=== PATIENT | male | born 1950 | race Caucasian/White ===

== ENCOUNTER → 2020-06-16 14:59 | Outpatient (BNVA) | payer MEDICARE, SELFPAY | PROVIDERS: PCP Nurse Practitioner Family; Visit Provider Nurse Practitioner Family | DX: Z20.828 Contact with and (suspected) exposure to other viral communicable diseases (principal); R05 Cough; J01.40 Acute pansinusitis, unspecified | CPT/HCPCS: 87635 ==

== ENCOUNTER 2020-06-24 11:42 | Inpatient (IN) | payer MEDICARE, SELFPAY ==
[2020-06-24] VITALS (51 sets, daily range): BP systolic 129–195; BP diastolic 81–129; PULSE 60–84; RESP 2–34; TEMP 36.7–37.1; O2SAT 85–92; BMI 28.3
--- NOTE | 2020-06-24 11:54 | XR_ITS ---
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 There is some def ormity of the upper trachea. There is elevation of both hemidiaphragms. Poor inspiration. There is a reticular nodular pattern in both lungs most notably the right upper lung and the left bill gular segment. These findings are more likely chronic in nature. There is no previous exam for compar jami. No other significant abnormalities identified. XR/XR chest 1V portable 19761 IMPRESSION: The portable technique and the lack of optimal inspiration may add to the impre ssion of a widened mediastinum however aortic or great vessel aneurysmal dilata tion or mediastinal mass would be considered. When feasible and upright PA and lateral chest should be obtained and if still suspicious CT scan of the chest w ith contrast should be definitive. The lung findings that are seen do not appear to indicate acute pulmonary patho logy.
--- NOTE | 2020-06-24 11:55 | ECG_ITS ---
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 Measurements Intervals [place] Rate: 65 P: 18 OH: 141 QRS: 50 QRSD: 97 T: 44 QT: 404 QTc: 422 Interpretive Statements SINUS RHYTHM No previous ECG available for comparison Electronically Signed On 06-24-2020 20:55:14 CDT by Lincoln Anguiano M.D. [id number] f
[2020-06-24 12:53] LABS: INR 1.04 (0.8-1.2)
[2020-06-24 12:55] LABS: Fibrinogen 920 mg/dL (174-498)
[2020-06-24] MEDS: dexamethasone 4 mg/mL INJ 6 MG IVP (12:58)
[2020-06-24] MEDS: enoxaparin 80 mg/0.8 mL Syringe SUBCUT (12:58)
[2020-06-24 13:00] LABS: D Dimer 1.91 ug/mIFEU (0-0.59)
[2020-06-24 13:01] LABS: Lactic Sepsis W/Reflex 2.4 mmol/L (0.5-2.2)
[2020-06-24 13:03] LABS: Troponin(5th) Baseline 8 ng/L (0-15)
[2020-06-24 13:10] LABS: NT Pro B Type Natriuretic Pept 493 pg/mL (0-125); Procalcitonin 0.09 ng/mL (0-0.5)
[2020-06-24 13:22] LABS: Alanine Aminotransferase 21 U/L (0-41); Albumin Level 3.1 g/dL (3.5-5.2); Alkaline Phosphatase 66 IU/L (40-130); Anion Gap 16.5 (5-19); Aspartate Amino Transferase 30 U/L (0-40); Blood Urea Nitrogen 23 mg/dL (8-23); C Reactive Protein 106.1 mg/L (0.0-4.9); Calcium 8.7 mg/dL (8.5-10.5); Carbon Dioxide 20 mmol/L (22-29); Chloride 98 mmol/L (98-107); Ferritin 494 ng/mL (30-400); Globulin 4.1 g/dL (1.3-4.6); Glomerular Filtration Rate 66.4 mL/min (90-130); Glucose 168 mg/dL (65-115); Magnesium 2.4 mg/dL (1.7-2.3); Osmolality Calculated 278 mOsm/kg (285-295); Potassium 4.5 mmol/L (3.5-5.1); Sodium 130 mmol/L (136-145); Total Bilirubin 0.4 mg/dL (0.15-1.2); Total Protein 7.2 g/dL (6.6-8.7)
[2020-06-24 13:45] LABS: Influenza A by IFA Negative (Negative); Influenza B by IFA Negative (Negative)
[2020-06-24 13:48] LABS: Basophils % 0.1 %; Hematocrit 46.5 % (42.0-52.0); Lymphocytes # 0.5 10^3/uL (0.8-4.8); Lymphocytes % 4.2 %; Mean Corpuscular HGB Conc 32.3 g/dL (30.0-36.0); Mean Corpuscular Hemoglobin 26.5 pg (28.0-34.0); Mean Corpuscular Volume 82.2 fL (80-94); Monocytes # 0.7 10^3/uL (0.2-0.9); Monocytes % 6.5 %; Neutrophils # 9.76 10^3/uL (1.8-7.7); Neutrophils % 88.7 %; Nucleated Red Blood Cells % 0 %; Platelet Count 346 10^3/cmm (130-400); Red Blood Count 5.66 10^6/uL (4.1-5.3); Red Cell Distribution Width 18.1 % (12.1-15.1)
--- NOTE | 2020-06-24 13:55 | ECG_ITS ---
[facility] Test Date: 2020-06-24 Pat Name: Rafa Lucas Department: Room: Gender: Male Care Team Assistant: : 1950 Requested By: Marybel Garcia Order Number: [id number] Johanna MD: Lincoln Anguiano M.D. Measurements Intervals [place] Rate: 63 P: 5 HI: 147 QRS: 42 QRSD: 94 T: 45 QT: 427 QTc: 439 Interpretive Statements SINUS RHYTHM Compared to ECG 06/24/2020 12:15:16 No significant changes Electronically Signed On 06-25-2020 21:37:32 CDT by Lincoln Anguiano M.D. [id number]
[2020-06-24 14:14] LABS: Reflex Lactate Order REFLEX LACTIC ORDERD
--- NOTE | 2020-06-24 14:21 | ED_ITS ---
HPI - General Adult General: Chief complaint: General Medical Stated complaint: SOB, COVID + 2 WKS AGO Time Seen by Provider: 06/24/20 11:45 History of Present Illness: HPI narrative: This patient is a 69-year-old male who comes in today with COVID. He had a positive test about 10 days ago. He was symptomatic for a few days before that and per family he is on day 12 of illness. His granddaughter is an ICU nurse here. He said he has been running fevers the whole time he has been sick. The most recent was 101 this morning. He has a pulse ox at home and his pulse ox was in the 60s this morning. He said it is been doing that at times but he has not told anyone about it. He saw his primary care and was put on Zithromax, Levaquin, prednisone and given a shot of dexamethasone. He said he felt better after that but really has never been back to normal. He denies any other history such as diabetes or COPD. He does have hypertension and BPH. He does state he has been having problems with congestion for about the last year but thinks it is related to allergies. Onset (ago): day(s) (12) Associated symptoms: Reports dyspnea, malaise and nausea; Deny chest pain, headache(s), rash or vomiting Review of Systems General: Reports: 10 or more systems reviewed and unremarkable except in HPI and below Const: Reports: fever(s), chills, fatigue and malaise Eyes: Denies: change in vision ENMT: Denies: odynophagia Card: Denies: chest pain or swelling of feet/ankles Resp: Reports: dyspnea and non-productive cough; Denies: productive cough GI: Reports: nausea; Denies: abdominal pain or vomiting : Denies: flank pain Musc: Denies: neck pain or back pain Skin/Breast: Denies: rash Neuro: Denies: headache(s), numbness in extremities or weakness in extremities Babar/Lymph: Denies: easy bruising or easy bleeding All/Imm: Reports: seasonal rhinorrhea PFS ED PFSH: Medical History BPH (benign prostatic hyperplasia) Cough HTN (hypertension) Lower respiratory infection Sinusitis Surgical History Hx of appendectomy Family History Other Hypertension Social History (Updated 06/24/20 @ 20:08 by Rosalba Brunson MD) Smoking and tobacco status: never smoked Alcohol intake: current Alcohol intake frequency: holidays/special occasions only Substance/Drug Use: never Household members: spouse Marital status: Current occupational status: retired Physical Exam Const: COMMON NORMALS: no acute distress, patient oriented x3, no limitations and alert GENERAL APPEARANCE: cooperative and comfortable HENMT: HEAD & SCALP: normal to inspection FACE & SINUS: normal facial exam Eye: GENERAL EYE: appearance normal, both eyes and all related structures Neck/C-Spine: COMMON NORMALS: supple, no meningeal signs and no JVD Chest: COMMONS NORMALS: normal inspection of the chest Resp: COMMON NORMALS: normal respiratory effort, No use of accessory muscles and clear to auscultation bilaterally AUSCULTATION: clear to auscultation bilaterally Cardio: COMMON NORMALS: no JVD, regular rate, regular rhythm and No murmurs present (Cardio) RATE: regular rate RHYTHM: regular rhythm GI: COMMON NORMALS: Normal to inspection, nondistended, normoactive bowel sounds present, Soft to palpation and non-tender INSPECTION: Yes normal to inspection AUSCULTATION: Yes normoactive bowel sounds PALPATION: Yes Soft to palpation Back/Pelvis: COMMON NORMALS: thoracic and lumbar spine normal to inspection Extremity: COMMON NORMALS: normal to inspection Neuro: COMMON NORMALS: patient oriented x3, moves all extremities, no focal motor deficits and no sensory deficits noted SENSORIUM/ORIENTATION: Yes alert MENINGEAL SIGNS: Yes no meningeal signs Psych: COMMON NORMALS: mental status grossly normal, cooperative and normal affect Skin: COMMON NORMALS: no rashes or lesions noted and turgor normal GENERAL SKIN EXAM: no rashes or lesions noted and turgor normal Course ED course: This patient is COVID positive and on day 12 of illness. He is worsening with more shortness of breath and hypoxia. His chest x-ray is concerning. We were able to keep his sats in the low 90s on just a few liters of oxygen in the ED. He will be admitted for Decadron, remdesivir. He is overall fairly healthy and active and hopefully will do well. Vital Signs: Vital signs: Vital Signs Temperature 98.6 F 06/24/20 20:00 Pulse Rate 62 06/24/20 21:45 Respiratory Rate 31 H 06/24/20 21:45 Blood Pressure 184/103 06/24/20 21:45 Pulse Oximetry 91 06/24/20 21:45 MDM - General Adult Lab Data: Labs: Lab Results 06/24/20 06/24/20 06/24/20 Range/Units 12:20 12:20 12:20 WBC 11.0 H (4.0-10.0) 10^3/ uL RBC 5.66 H (4.1-5.3) 10^6/u L Hgb 15.0 (11.7-16.6) g/dL Hct 46.5 (42.0-52.0) % MCV 82.2 (80-94) fL MCH 26.5 L (28.0-34.0) pg MCHC 32.3 (30.0-36.0) g/dL RDW 18.1 H (12.1-15.1) % Plt Count 346 (130-400) 10^3/c mm MPV 11.0 H (7.4-10.4) fL Neut % (Auto) 88.7 % Lymph % (Auto) 4.2 % Perkins % (Auto) 6.5 % Eos % (Auto) 0.0 % Baso % (Auto) 0.1 % Neut # (Auto) 9.76 H (1.8-7.7) 10^3/u L Lymph # (Auto) 0.5 L (0.8-4.8) 10^3/u L Perkins # (Auto) 0.7 (0.2-0.9) 10^3/u L Eos # (Auto) 0.0 (0.0-0.8) 10^3/u L Baso # (Auto) 0.0 (0.0-0.1) 10^3/u L Nucleated RBC % (a uto) 0 % Nucleated RBCs # 0.0 /100WBC PT 13.90 (12.1-14.9) SECO NDS INR 1.04 (0.8-1.2) Fibrinogen 920 H (174-498) mg/dL D-Dimer 1.91 H (0-0.59) ug/mIFE U Sodium 130 L (136-145) mmol/L Potassium 4.5 (3.5-5.1) mmol/L Chloride 98 (98-107) mmol/L Carbon Dioxide 20 L (22-29) mmol/L Anion Gap 16.5 (5-19) BUN 23 (8-23) mg/dL Creatinine 1.1 (0.7-1.2) mg/dL GFR Calculation 66.4 L (90-130) mL/min Glucose 168 H (65-115) mg/dL Calculated Osmolal ity 278 L (285-295) mOsm/k g Lactic Acid (0.5-2.2) mmol/L Calcium 8.7 (8.5-10.5) mg/dL Magnesium 2.4 H (1.7-2.3) mg/dL Ferritin 494 H (30-400) ng/mL Total Bilirubin 0.4 (0.15-1.2) mg/dL AST 30 (0-40) U/L ALT 21 (0-41) U/L Alkaline Phosphata se 66 (40-130) IU/L Troponin T Baselin e (0-15) ng/L C-Reactive Protein 106.1 H (0.0-4.9) mg/L NT-Pro-B Natriuret Pep 493 H (0-125) pg/mL Total Protein 7.2 (6.6-8.7) g/dL Albumin 3.1 L (3.5-5.2) g/dL Globulin 4.1 (1.3-4.6) g/dL Procalcitonin 0.09 (0-0.5) ng/mL Influenza Type A A g (Negative) Influenza Type B A g (Negative) 06/24/20 06/24/20 06/24/20 Range/Units 12:20 12:20 13:05 WBC (4.0-10.0) 10^3/ uL RBC (4.1-5.3) 10^6/u L Hgb (11.7-16.6) g/dL Hct (42.0-52.0) % MCV (80-94) fL MCH (28.0-34.0) pg MCHC (30.0-36.0) g/dL RDW (12.1-15.1) % Plt Count (130-400) 10^3/c mm MPV (7.4-10.4) fL Neut % (Auto) % Lymph % (Auto) % Perkins % (Auto) % Eos % (Auto) % Baso % (Auto) % Neut # (Auto) (1.8-7.7) 10^3/u L Lymph # (Auto) (0.8-4.8) 10^3/u L Perkins # (Auto) (0.2-0.9) 10^3/u L Eos # (Auto) (0.0-0.8) 10^3/u L Baso # (Auto) (0.0-0.1) 10^3/u L Nucleated RBC % (a uto) % Nucleated RBCs # /100WBC PT (12.1-14.9) SECO NDS INR (0.8-1.2) Fibrinogen (174-498) mg/dL D-Dimer (0-0.59) ug/mIFE U Sodium (136-145) mmol/L Potassium (3.5-5.1) mmol/L Chloride (98-107) mmol/L Carbon Dioxide (22-29) mmol/L Anion Gap (5-19) BUN (8-23) mg/dL Creatinine (0.7-1.2) mg/dL GFR Calculation (90-130) mL/min Glucose (65-115) mg/dL Calculated Osmolal ity (285-295) mOsm/k g Lactic Acid 2.4 H (0.5-2.2) mmol/L Calcium (8.5-10.5) mg/dL Magnesium (1.7-2.3) mg/dL Ferritin (30-400) ng/mL Total Bilirubin (0.15-1.2) mg/dL AST (0-40) U/L ALT (0-41) U/L Alkaline Phosphata se (40-130) IU/L Troponin T Baselin e 8 (0-15) ng/L C-Reactive Protein (0.0-4.9) mg/L NT-Pro-B Natriuret Pep (0-125) pg/mL Total Protein (6.6-8.7) g/dL Albumin (3.5-5.2) g/dL Globulin (1.3-4.6) g/dL Procalcitonin (0-0.5) ng/mL Influenza Type A A g Negative (Negative) Influenza Type B A g Negative (Negative) Discharge Plan Discharge Patient Disposition: Admitted As Inpatient Admit Provider: Rosalba Brunson Discharge Date/Time: 06/24/20 20:34 Coding Level of Care Code ED [employer] Supervisor for [employer]g Fwd Exam Comprehensive
[2020-06-24 15:18] LABS: Lactic Acid level (Lactate) 1.2 mmol/L (0.5-2.2)
[2020-06-24 15:19] LABS: Troponin 5 2HR 7.95 ng/L (0-15)
[2020-06-24 15:20] LABS: Troponin 5 2HR Delta -0.05 ABS# (0-10)
--- NOTE | 2020-06-24 15:49 | PC.NURSE ---
Dr Gutierrez in room , assessing pt for admission
--- NOTE | 2020-06-24 17:55 | ECG_ITS ---
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 Measurements Intervals [place] Rate: 68 P: 42 MN: 150 QRS: 72 QRSD: 102 T: 43 QT: 400 QTc: 426 Interpretive Statements SINUS RHYTHM Compared to ECG 06/24/2020 14:37:39 No significant changes Electronically Signed On 06-25-2020 21:38:15 CDT by Lincoln Anguiano M.D. [email or web address]/store/NU/[id number] f
[2020-06-24 18:59] LABS: Troponin 5 6HR 6.26 ng/L (0-15); Troponin 5 6HR Delta -1.74 ng/L (0-12)
--- NOTE | 2020-06-24 19:58 | P.HP_ITS ---
Providers/Chief Complaint Admitting Physician: Rosalba Brunson MD Primary Care Provider: DELMAR Gr Chief Complaint: SOB, COVID + 2 WKS AGO History of Present Illness Rafa Lucas is a 69 year old male with PMHx noted below presents with complaints of increased generalized weakness, malaise, for the past several days. He was initially diagnosed with COVID-19 approximately 2 weeks ago following a fishing trip with friends to [place]. Since then he has been treated with oral steroids, short course of azithromycin and Levaquin. He is not oxygen dependent at baseline. Has continued to feel poorly particularly over the past few days to the point where he can ambulate for very minimal distances. He is currently requiring 2 L nasal cannula, further work-up indicates leukocytosis with a white count of 11.0, sodium of 130, otherwise normal chemistry, elevated d-dimer, fibrinogen, ferritin, BMP, CRP, lactic acid. He has received his first dose of Remdesevir as well as a dose of steroids. Due to associated risk of thrombosis he has also received a dose of Lovenox. Chest x-ray is reported as reticular changes. Influenza is negative. Due to need for continued supportive care, close monitoring of respiratory status, supplemental oxygen and continuation of antiviral treatment will be admitted to the viral ICU. Review of Systems Const: Reports: chills, body aches, change in appetite (decreased appetite), change in weight (weight loss), fatigue and malaise; Denies: fever(s) Eyes: Denies: change in vision ENMT: Reports: dry mouth Card: Reports: dyspnea on exertion; Denies: chest pain, swelling of feet/ankles or lightheadedness Resp: Reports: dyspnea and non-productive cough GI: Reports: nausea and diarrhea; Denies: abdominal pain, vomiting, hematemesis or hematochezia : Denies: hematuria Musc: Denies: back pain Skin/Breast: Denies: rash Neuro: Reports: weakness in extremities; Denies: numbness in extremities Psych: Denies: anxiety Medications/Allergies Home Medications Medication Instructions Recorded Confirmed Last Taken Type levofloxacin 500 mg tablet 500 mg PO DAILY 5 Days #5 tab 06/20/20 06/24/20 06/23/20 Rx ondansetron HCl 4 mg tablet 4 mg PO Q8H PRN #15 tab 06/23/20 06/24/20 Unknown Rx Vitamin C 1 tab PO DAILY 06/24/20 06/24/20 Unknown History Vitamin D3 1 tab PO DAILY 06/24/20 06/24/20 Unknown History acetaminophen [Tylenol] 325 - 975 mg PO PRN 06/24/20 06/24/20 Unknown History aspirin 81 mg PO DAILY 06/24/20 06/24/20 06/24/20 History candesartan 32 mg PO DAILY 06/24/20 06/24/20 06/24/20 History indomethacin 50 mg PO TID 06/24/20 06/24/20 Unknown History montelukast [Singulair] 10 mg PO DAILY 06/24/20 06/24/20 Unknown History nebivolol [Bystolic] 10 mg PO DAILY 06/24/20 06/24/20 06/23/20 History prednisone See Rx Instructions .ROUTE .COMPLEX 06/24/20 06/24/20 06/24/20 History tamsulosin [Flomax] 0.4 mg PO BEDTIME 06/24/20 06/24/20 06/23/20 History zinc 50 mg PO DAILY 06/24/20 06/24/20 Unknown History Allergies Allergy/AdvReac Type Severity Reaction Status Date / Time No Known Allergies Allergy Verified 06/24/20 13:37 PFSH Acute PFSH: Medical History BPH (benign prostatic hyperplasia) Cough HTN (hypertension) Lower respiratory infection Sinusitis Surgical History Hx of appendectomy Family History Other Hypertension Social History (Updated 06/24/20 @ 20:08 by Rosalba Brunson MD) Smoking and tobacco status: never smoked Alcohol intake: current Alcohol intake frequency: holidays/special occasions only Substance/Drug Use: never Household members: spouse Marital status: Current occupational status: retired Vitals/I&O/Wt Last Vital Signs Temp 98.0 F 06/24/20 19:44 Pulse 72 06/24/20 18:01 Resp 20 H 06/24/20 18:01 BP 151/92 06/24/20 18:01 Pulse Ox 90 06/24/20 18:01 Weight last 48 hrs Weight 97.522 kg Physical Exam Const: COMMON NORMALS: no acute distress, patient oriented x3 and alert GENERAL APPEARANCE: cooperative and comfortable ORIENTATION/CONSCIOUSNESS: Yes awake OTHER: -appears fatigued, pleasant HENMT: COMMON NORMALS: normocephalic, atraumatic, hearing grossly normal bila terally and moist oral mucous membranes HEAD & SCALP: normocephalic and a traumatic Eye: COMMON NORMALS: Equal, round and reactive pupils present, EOMs intact bilaterally and conjunctivae normal CONJUNCTIVA: Yes conjunctivae normal PUPIL: Yes Equal, round and reactive pupils present Neck/C-Spine: COMMON NORMALS: full ROM GENERAL: Yes normal visual inspection and Yes trachea midline Resp: COMMON NORMALS: normal respiratory effort, No retractions and No use of accessory muscles EFFORT & INSPECTION: Yes able to speak in complete sentences, Yes symmetric chest movement and Yes tachypneic AUSCULTATION: joseluis chi (scattered) OTHER: -on 3 L NC, symmetrical air entry bilaterally Cardio: COMMON NORMALS: regular rate, regular rhythm, S1 normal heart sound present, S2 normal heart sound present and No murmurs present (Cardio) RATE: regular rate RHYTHM: regular rhythm HEART SOUNDS: S1 normal heart sound present and S2 normal heart sound present GI: COMMON NORMALS: Normal to inspection, nondistended, normoactive bowel sounds present, Soft to palpation and non-tender PALPATION: Yes Soft to palpation Extremity: COMMON NORMALS: normal to inspection, full ROM and no clubbing, cyanosis or edema; negative for no pedal edema Neuro: COMMON NORMALS: patient oriented x3, moves all extremities, no focal motor deficits and no sensory deficits noted Psych: COMMON NORMALS: mental status grossly normal, Normal thought process present, cooperative, normal affect and speech normal SPEECH: Yes normal speech THOUGHT PROCESS: Normal thought process present Skin: COMMON NORMALS: no rashes or lesions noted, no jaundice, no petechiae and no mottling GENERAL SKIN EXAM: no rashes or lesions noted Data : 06/24/20 12:20 06/24/20 12:20 Micro: Microbiology 06/24/20 12:23 Blood Culture - Preliminary Blood SPECIMEN COLLECTED 06/24/20 12:20 Blood Culture - Preliminary Blood SPECIMEN COLLECTED A&P Assessment and plan (1) COVID-19 virus infection: -Tested positive for COVID-19 on 06/16, continues to be symptomatic with noted hypoxia and currently requiring supplemental oxygen support -Isolation precautions -Monitor respiratory status closely -Supplemental oxygen support as needed, wean as tolerated, home oxygen eval uation prior to discharge if appropriate -Supportive care including zinc, vitamin C, antitussives, inhaler treatments as needed, pulmonary toilet, incentive spirometry, flutter valve -Given dose of steroids in ER, continue this -Received first dose of remdesevir, continue this -Noted elevated d-dimer, ferritin, lactic acid, fibrinogen, CRP, continue to trend inflammatory markers -Chest x-ray reported as reticular changes, monitor progression with repeat imaging -Monitor vital signs -Telemetry monitoring -Influenza screen negative, check MRSA, bacterial antigens, Legionella -f/u blood and sputum cx -has been treated with course of Azithromycin and Levaquin -due to increased risk of thrombosis, will add Eliquis Status: Acute (2) Hypoxia: -Secondary to COVID-19 infection as noted above -Not oxygen dependent at baseline Status: Acute (3) HTN (hypertension): -Monitor vital signs -resume oral antihypertensives Status: Chronic Qualifiers: Hypertension type: essential hypertension Qualified Code(s): I10 - Essential (primary) hypertension (4) BPH (benign prostatic hyperplasia): -resume tamsulosin Status: Chronic Qualifiers: Lower urinary tract symptom presence: unspecified whether lower urinary tract symptoms present Qualified Code(s): N40.0 - Benign prostatic hyperplasia without lower urinary tract symptoms Additional A&P Information -low salt diet as tolerated -hyponatremia; monitor Na levels, supplementation if needed -GI ppx with famotidine -DVT ppx not needed as on Eliquis -Dispo: home -Code status: FULL code -Admit to [facility] Medical Necessity Statement*: Rafa Lucas's hospital stay will require greater than 2 midnights for management of COVID-19 infection with associated hypoxia, initiated antiviral treatment, needs close monitoring of respiratory status. Time Spent in Patient Care: Greater than 35 minutes (>than 50% of time spent in counselling and/or direct pt care on unit) . 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
[2020-06-24] MEDS: hyDRALAzine 20 mg/mL INJ 1 mL 10 MG IVP (22:39)
[2020-06-24] MEDS: famotidine 20 mg/2 mL INJ IVP (22:40)
[2020-06-24] MEDS: tamsulosin 0.4 mg Capsule PO (22:41)
[2020-06-25] VITALS (62 sets, daily range): BP systolic 122–177; BP diastolic 72–110; PULSE 50–108; RESP 13–39; TEMP 36.6–37; O2SAT 81–94
--- NOTE | 2020-06-25 01:13 | PC.NURSE ---
Pt on 5 L NC SATs 88. Asked pt to prone and he did. Pt coughing increasing. Obtained sputum sample. Will continue to monitor.
--- NOTE | 2020-06-25 01:27 | PC.NURSE ---
Notified Dr Hill of pt SATs. Proned, his SATs are 87-88% Dr Hill ordered to call RT and start heated hi-sander. Will continue to monitor.
--- NOTE | 2020-06-25 03:09 | PC.NURSE ---
While talking to pt, pt reported to [facility] RT that he had to sit straight up at night while sleeping due to the fact that he has CHF. After rereading the ED physician note and the H&P I could not find where that had been disclosed before. Will notify Dr Hill.
[2020-06-25 06:15] LABS: Basophils % 0.1 %; Hematocrit 49.4 % (42.0-52.0); Hemoglobin 15.8 g/dL (11.7-16.6); Lymphocytes # 0.9 10^3/uL (0.8-4.8); Lymphocytes % 8.2 %; Mean Corpuscular Hemoglobin 26.3 pg (28.0-34.0); Mean Corpuscular Volume 82.2 fL (80-94); Mean Platelet Volume 10.9 fL (7.4-10.4); Monocytes # 1.1 10^3/uL (0.2-0.9); Monocytes % 10.2 %; Neutrophils # 8.53 10^3/uL (1.8-7.7); Neutrophils % 80.6 %; Nucleated Red Blood Cells % 0 %; Platelet Count 321 10^3/cmm (130-400); Red Blood Count 6.01 10^6/uL (4.1-5.3); Red Cell Distribution Width 18.6 % (12.1-15.1); White Blood Count 10.6 10^3/uL (4.0-10.0)
[2020-06-25 07:00] LABS: NT Pro B Type Natriuretic Pept 769 pg/mL (0-125); Procalcitonin 0.07 ng/mL (0-0.5)
[2020-06-25 07:02] LABS: Alanine Aminotransferase 21 U/L (0-41); Albumin Level 3.2 g/dL (3.5-5.2); Alkaline Phosphatase 73 IU/L (40-130); Anion Gap 19.4 (5-19); Aspartate Amino Transferase 26 U/L (0-40); Blood Urea Nitrogen 24 mg/dL (8-23); C Reactive Protein 122.5 mg/L (0.0-4.9); Calcium 9.1 mg/dL (8.5-10.5); Carbon Dioxide 20 mmol/L (22-29); Chloride 102 mmol/L (98-107); Creatine Phosphokinase 69 U/L (39-308); Globulin 4.7 g/dL (1.3-4.6); Glomerular Filtration Rate 83.7 mL/min (90-130); Glucose 101 mg/dL (65-115); Osmolality Calculated 288 mOsm/kg (285-295); Potassium 4.4 mmol/L (3.5-5.1); Sodium 137 mmol/L (136-145); Total Bilirubin 0.6 mg/dL (0.15-1.2); Total Protein 7.9 g/dL (6.6-8.7)
[2020-06-25 07:15] LABS: Ferritin 484 ng/mL (30-400); Lactate Dehydrogenase 342 U/L (135-225)
--- NOTE | 2020-06-25 09:17 | CT_ITS ---
WS: [id number] CT CHEST TECHNIQUE: Noncontrast CT of the chest with coronal and sagittal reformatted images. CLINICAL INFORMATION: COVID-19 infection, evaluate for ARDS COMPARISON: None. DLP: 917.[address] scans at [facility] use at least one of these dose optimization techniques: automat ed exposure control; mA and/or kV adjustment per patient size (includes targeted exams where dose is matched to clinical indication); or iterative reconstruction. FINDINGS: Moderate chronic emphysematous changes. Diffuse groundglass airspace infiltrates involving the right upper lobe worse in the right lung apex and posteriorly. Similar-appearing diffuse groundglass alveol ar infiltrates within the right lower lobe with a few air bronchograms. Additional groundglass infilt rates in the right middle lobe. Small right pleural effusion. Groundglass infiltrates in the left upper lobe and left lower lobe less prominent compared to the rig ht side. A few slightly prominent reactive right greater than left hilar and peribronchial lymph node s. Central bronchi are patent. Mild aortic calcification. Adrenal glands are normal. Normal visualized upper abdominal contents. Mild thoracic kyphosis. CT/CT chest wo con [id number] IMPRESSION: 1. Diffuse groundglass alveolar infiltrates worse in the right lung involving the right upper lobe, right middle lobe and right lower lobe. A few air broncho grams within the right lower lobe with a small right pleural effusion. No dense consolidation. 2. Additional hazy ground glass infiltrates in the left upper lobe and left lo wer lobe. Chronic elevation left hemidiaphragm. 3. A few reactive peribronchial and hilar lymph nodes.
[2020-06-25 09:39] LABS: Fibrinogen 844 mg/dL (174-498)
[2020-06-25] MEDS: aspirin 81 mg EC Tablet PO (09:49)
[2020-06-25] MEDS: ascorbic acid 500 mg Tablet PO ×2 (09:49→17:01)
[2020-06-25] MEDS: montelukast sodium 10 mg Tablet PO (09:49)
[2020-06-25] MEDS: zinc gluconate 50 mg Tablet PO (09:49)
[2020-06-25] MEDS: apixaban 5 mg Tablet PO ×2 (09:49→17:01)
[2020-06-25] MEDS: azithromycin 500 MG in sodium chloride 0.9% 250 ML 250 MG IV (09:50)
[2020-06-25] MEDS: FUROsemide 10 mg/mL SDV 4mL 20 MG IVP (09:50)
[2020-06-25] MEDS: dexamethasone 4 mg/mL INJ 6 MG IVP (09:50)
[2020-06-25] MEDS: famotidine 20 mg/2 mL INJ IVP ×2 (09:51→20:31)
[2020-06-25] MEDS: ipratropium-albuterol 3 mL Neb INHALATION ×2 (09:52→20:55)
[2020-06-25] MEDS: budesonide 0.5 mg/2 mL Neb INHALATION ×2 (09:52→20:55)
[2020-06-25 10:13] LABS: ABG PH Result 7.51 (7.35-7.45); Arterial Blood Gas Hematocrit 49.3 % (42-52); Base Excess ABG -0.3 mmol/L (-2.0-2.0); Blood Gas Allen Test Pos; Blood Gas Operator Identificat BD; Blood Gas Sample Site Radial, right; Blood Gas Sample Type Arterial; HCO3 ABG 20.9 mmol/L (22-26); PO2 ABG 65.8 mmHg (80.0-100.0)
--- NOTE | 2020-06-25 10:21 | P.PN_ITS ---
Subjective Subjective: Interval history: Overnight oxygen requirement increased significantly, now requiring heated high flow, FiO2 of 90%, 45 L with saturation in the mid 90s, hypertensive, afebrile, improving leukocytosis,. Case discussed this morning with Dr. May, concern for worsening respiratory status, repeat ABG requested following increase of oxygen level to 70 L, diuresis with Lasix, addition of azithromycin, neb treatments. Discussed potential need for intubation given continued decompensation and high oxygen requirement. On day 2 of Remdesevir. Keep NPO for now. Medications: Reviewed: Yes Medication Review Details: Active Medications Generic Name Dose Route Start Last Admin Trade Name Freq PRN Reason Stop Dose Admin Acetaminophen 650 mg 06/24/20 20:56 Tylenol PO Q6H PRN Mild/Mod Pain Or Temp >/= 101 Albuterol Sulfate 2 puff 06/25/20 04:52 Ventolin INHALATION Q4H.RESPIRATORY P RN SHORTNESS OF HU TH Albuterol/Ipratrop ium 3 ml 06/25/20 09:23 06/25/20 09:52 Duoneb INHALATION 3 ml Q6H PRN Administration SHORTNESS OF HU TH Apixaban 5 mg 06/25/20 09:00 06/25/20 09:49 Eliquis PO 5 mg BID GABY Administration Ascorbic Acid 500 mg 06/25/20 09:00 06/25/20 09:49 Vitamin C PO 500 mg BID GABY Administration Aspirin 81 mg 06/25/20 09:00 06/25/20 09:49 Aspirin Ec PO 81 mg DAILY GABY Administration Benzonatate 100 mg 06/24/20 20:56 Tessalon Pearls PO TID PRN COUGH Budesonide 0.5 mg 06/25/20 09:30 06/25/20 09:52 Pulmicort INHALATION 0.5 mg BID.RESPIRATORY S CH Administration Dexamethasone 6 mg 06/25/20 09:00 06/25/20 09:50 Decadron IVP 6 mg Q24H GABY Administration Famotidine 20 mg 06/24/20 20:56 06/25/20 09:51 Pepcid Inj IVP 20 mg Q12H GABY Administration Hydralazine HCl 10 mg 06/24/20 20:56 06/24/20 22:39 Apresoline IVP 10 mg Q4H PRN Administration Elevated blood pr essure remdesivir (EUA) 1 00 mg/ 100 mls @ 100 mls /hr 06/25/20 15:00 Sodium Chloride IV 06/28/20 15:59 Q24H GABY Azithromycin 500 m g/ Sodium 250 mls @ 250 mls /hr 06/25/20 10:00 06/25/20 09:50 Chloride IV 250 mls/hr Q24H GABY Administration Protocol Montelukast Sodium 10 mg 06/25/20 09:00 06/25/20 09:49 Singulair PO 10 mg DAILY GABY Administration Nebivolol 10 mg 06/25/20 09:20 06/25/20 09:51 Bystolic PO 10 mg DAILY GABY Administration Ondansetron HCl 4 mg 06/24/20 20:56 Zofran IVP Q6H PRN vomiting, or N/V if npo Tamsulosin HCl 0.4 mg 06/24/20 21:00 06/24/20 22:41 Flomax PO 0.4 mg BEDTIME GABY Administration Zinc Gluconate 50 mg 06/25/20 09:00 06/25/20 09:49 Zinc Gluconate PO 50 mg DAILY GABY Administration No Known Allergies Allergy (Verified 06/24/20 13:37) Vitals/I&O/Wt Last Vital Signs Temp 98.0 F 06/25/20 07:00 Pulse 86 06/25/20 09:49 Resp 18 06/25/20 09:49 BP 151/95 06/25/20 07:00 Pulse Ox 93 06/25/20 09:49 06/24/20 06/25/20 06/25/20 22:59 06:59 14:59 Intake Total 236 / 236 Output Total 400 / 400 700 / 1100 Balance -164 / -164 -700 / -864 Weight last 48 hrs Weight 94.982 kg Weight 97.522 kg Physical Exam Const: COMMON NORMALS: no acute distress, patient oriented x3 and alert GENERAL APPEARANCE: cooperative and comfortable ORIENTATION/CONSCIOUSNESS: Yes awake OTHER: -appears fatigued, pleasant HENMT: COMMON NORMALS: normocephalic, atraumatic, hearing grossly normal bilaterally and moist oral mucous membranes HEAD & SCALP: normocephalic and atraumatic Eye: COMMON NORMALS: Equal, round and reactive pupils present, EOMs intact bilaterally and conjunctivae normal CONJUNCTIVA: Yes conjunctivae normal PUPIL: Yes Equal, round and reactive pupils present Neck/C-Spine: COMMON NORMALS: full ROM GENERAL: Yes normal visual inspection and Yes trachea midline Resp: COMMON NORMALS: normal respiratory effort, No retractions and No use of accessory muscles EFFORT & INSPECTION: Yes able to speak in complete sentences, Yes symmetric chest movement and Yes tachypneic AUSCULTATION: rhonchi (scattered) OTHER: -on 70L, FiO2-90% on heated high flow NC Cardio: COMMON NORMALS: regular rate, regular rhythm, S1 normal heart sound present, S2 normal heart sound present and No murmurs present (Cardio) RATE: regular rate RHYTHM: regular rhythm HEART SOUNDS: S1 normal heart sound present and S2 normal heart sound present GI: COMMON NORMALS: Normal to inspection, nondistended, normoactive bowel sounds present, Soft to palpation and non-tender PALPATION: Yes Soft to palpa tion Extremity: COMMON NORMALS: normal to inspection, full ROM and no clubbing, cyanosis or edema; negative for no pedal edema Neuro: COMMON NORMALS: patient oriented x3, moves all extremities, no focal motor deficits and no sensory deficits noted SENSORIUM/ORIENTATION: Yes alert Psych: COMMON NORMALS: mental status grossly normal, Normal thought process present, cooperative, normal affect and speech normal SPEECH: Yes normal speech THOUGHT PROCESS: Normal thought process present Skin: COMMON NORMALS: no rashes or lesions noted, no jaundice, no petechiae and no mottling GENERAL SKIN EXAM: no rashes or lesions noted Data : 06/25/20 04:30 06/25/20 04:30 Micro: Microbiology 06/25/20 01:15 Gram Stain - Final Sputum - Expectorated Sputum 06/24/20 12:23 Blood Culture - Preliminary Blood SPECIMEN COLLECTED 06/24/20 12:20 Blood Culture - Preliminary Blood SPECIMEN COLLECTED A&P Assessment and plan (1) COVID-19 virus infection: -Tested positive for COVID-19 on 06/16, continues to be symptomatic with noted hypoxia and currently requiring supplemental oxygen support. Increased oxygen requirement overnight, now on heated high flow with FiO2 of 90%, 70 L -Isolation precautions -continue to monitor respiratory status closely -Supplemental oxygen support as needed, wean as tolerated, home oxygen evaluation prior to discharge if appropriate -Supportive care including zinc, vitamin C, antitussives, breathing treatments as needed, pulmonary toilet, incentive spirometry, flutter valve -continue dexamethasone -on day 2/5 of remdesevir -Noted elevated d-dimer, ferritin, lactic acid, fibrinogen, CRP, continue to trend inflammatory markers. Normal pro-calcitonin -Chest x-ray reported as reticular changes, monitor progression with repeat imaging. CT chest to assess for developing ARDS -Afebrile, hypertensive, continue to monitor vital signs -Telemetry monitoring -Influenza screen negative, check MRSA, bacterial antigens, Legionella -blood cx pending -sputum cx pending, gram stain polymicrobial -has been treated with course of Azithromycin and Levaquin. Resume Azithromycin, add Vancomycin due to noted GPC in sputum gram stain -due to increased risk of thrombosis, on Eliquis -monitor fluid balance closely, 1 dose of Lasix now, order Echo, no baseline on record Status: Acute (2) Hypoxia: -Secondary to COVID-19 infection as noted above -Not oxygen dependent at baseline Status: Acute (3) HTN (hypertension): -Continue to monitor vital signs -resume nebivolol, d/c ARB Status: Chronic Qualifiers: Hypertension type: essential hypertension Qualified Code(s): I10 - Essential (primary) hypertension (4) BPH (benign prostatic hyperplasia): -on tamsulosin Status: Chronic Qualifiers: Lower urinary tract symptom presence: unspecified whether lower urinary tract symptoms present Qualified Code(s): N40.0 - Benign prostatic hyperplasia without lower urinary tract symptoms Additional A&P Information -low salt diet as tolerated; keep NPO for now due to potential for intubation -hyponatremia, resolved; continue to monitor Na levels, supplementation if needed -GI ppx with famotidine -DVT ppx not needed as on Eliquis -Dispo: home -Code status: FULL code -higher oxygen requirement, increased work of breathing, potential need for vent support Attestations Medical Necessity Statement*: Patient requires hospitalization for continued management of COVID-19 infection with progressively worsening hypoxia, high oxygen requirement and potential need for ventilator support. Time Spent in Patient Care: Greater than 35 minutes (>than 50% of time spent in counselling and/or direct pt care on unit) . 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
--- NOTE | 2020-06-25 10:21 | USCV_ITS ---
Rafa Lucas Age: 69 Gender: M : 1950 Exam Date: 06/25/2020 16:39 Ordering Phys: Rosalba Brunson MD Technologist: Daniel Puentes Exam Location: [facility] [place] Indication: ACUTE CHF ? EF BP: 170 / 116 HR: 72 Rhythm: Sinus Technical Quality: Very technically difficult study MEASUREMENTS (Male / Female) Normal Values 2D ECHO LVOT Diameter 2.0 cm LV Ejection Fraction MOD 2C 65.3 % LV Ejection Fraction 2C AL 64.8 % LA Diameter 2.5 cm LA Width 3.5 cm LA Height 3.8 cm RA Width 2.6 cm RA Height 3.4 cm DOPPLER MV Area PHT 5.1 cm squared Mitral E to A Ratio 0.9 MV E' Velocity 44.0 cm/s Mitral E to MV E' Ratio 11.6 Mitral E to LV E' Lateral Ratio 11.0 Mitral E to LV E' Septal Ratio 12.3 FINDINGS Left Ventricle Normal left ventricular size and systolic function, EF 59 %. Mild left ventricular hypertrophy. No regional wall motion abnormalities. Right Ventricle Normal right ventricular size and systolic function. Right Atrium Normal right atrial size. Left Atrium Normal left atrial size. Mitral Valve Thickened mitral valve. Aortic Valve Thickened aortic valve. Tricuspid Valve No gross abnormalities noted Pulmonic Valve Pulmonic valve not well visualized. Pericardium No pericardial effusion. Aorta Normal aortic annulus size. CONCLUSIONS Normal left ventricular size and systolic function, EF 59 %. Mild left ventricular hypertrophy. No regional wall motion abnormalities. Thickened mitral valve. Thickened aortic valve. There is no pericardial effusion. There are no intracardiac masses. No previous study is available for comparison. Dr Lincoln Anguiano MD FACC (Electronically Signed) Final Date: 25 June 2020 20:17 S
[2020-06-25] MEDS: dexmedetomidine 400 MCG in sodium chloride 0.9% (100 ml) 100 ML IV (12:39)
[2020-06-25] MEDS: tamsulosin 0.4 mg Capsule PO (20:31)
[2020-06-26] VITALS (54 sets, daily range): BP systolic 66–226; BP diastolic 56–134; PULSE 43–112; RESP 13–46; TEMP 36.6–36.9; O2SAT 77–96
[2020-06-26 05:11] LABS: ABG PCO2 30.9 mmHg (35-45); ABG PH Result 7.48 (7.35-7.45); Arterial Blood Gas Hematocrit 56.5 % (42-52); Base Excess ABG 0.4 mmol/L (-2.0-2.0); Blood Gas Allen Test Pos; Blood Gas Sample Site Radial, right; Blood Gas Sample Type Arterial; HCO3 ABG 22.8 mmol/L (22-26); Oxygen Device NC; PO2 ABG 72.6 mmHg (80.0-100.0)
[2020-06-26 05:19] LABS: Hematocrit 47.5 % (42.0-52.0); Hemoglobin 15.2 g/dL (11.7-16.6); Lymphocytes # 0.6 10^3/uL (0.8-4.8); Lymphocytes % 7.1 %; Mean Corpuscular Hemoglobin 26.4 pg (28.0-34.0); Mean Corpuscular Volume 82.6 fL (80-94); Mean Platelet Volume 11.3 fL (7.4-10.4); Monocytes # 0.7 10^3/uL (0.2-0.9); Monocytes % 8.4 %; Neutrophils # 7.35 10^3/uL (1.8-7.7); Neutrophils % 83.8 %; Nucleated Red Blood Cells % 0 %; Platelet Count 325 10^3/cmm (130-400); Red Blood Count 5.75 10^6/uL (4.1-5.3); Red Cell Distribution Width 18.3 % (12.1-15.1); White Blood Count 8.8 10^3/uL (4.0-10.0)
[2020-06-26 05:55] LABS: Alanine Aminotransferase 17 U/L (0-41); Alkaline Phosphatase 65 IU/L (40-130); Anion Gap 16.3 (5-19); Aspartate Amino Transferase 22 U/L (0-40); Blood Urea Nitrogen 28 mg/dL (8-23); Calcium 8.6 mg/dL (8.5-10.5); Carbon Dioxide 23 mmol/L (22-29); Chloride 102 mmol/L (98-107); Globulin 4.3 g/dL (1.3-4.6); Glomerular Filtration Rate 74.1 mL/min (90-130); Glucose 118 mg/dL (65-115); Osmolality Calculated 291 mOsm/kg (285-295); Potassium 4.3 mmol/L (3.5-5.1); Sodium 137 mmol/L (136-145); Total Bilirubin 0.7 mg/dL (0.15-1.2); Total Protein 7.3 g/dL (6.6-8.7)
--- NOTE | 2020-06-26 06:06 | XR_ITS ---
WS: [id number] XR chest 1V portable [id number] REASON FOR EXAM: shortness of breath FINDINGS: Density in the periphery of the left lung is unchanged. Diffuse hazy reticular density in the right l monalisa is unchanged. No new findings. XR/XR chest 1V portable [id number] IMPRESSION: Stable abnormal chest.
[2020-06-26 06:46] LABS: NT Pro B Type Natriuretic Pept 294 pg/mL (0-125)
--- NOTE | 2020-06-26 07:28 | PC.NURSE ---
walked in room to assess patient and precedex drip was empty. called pharmacy immediately to get a new bag stat.
[2020-06-26] MEDS: dexmedetomidine 400 MCG in sodium chloride 0.9% (100 ml) 100 ML IV (07:35)
[2020-06-26] MEDS: apixaban 5 mg Tablet PO (08:05)
[2020-06-26] MEDS: ascorbic acid 500 mg Tablet PO (08:05)
[2020-06-26] MEDS: zinc gluconate 50 mg Tablet PO (08:05)
[2020-06-26] MEDS: montelukast sodium 10 mg Tablet PO (08:05)
[2020-06-26] MEDS: aspirin 81 mg EC Tablet PO (08:05)
[2020-06-26] MEDS: dexamethasone 4 mg/mL INJ 6 MG IVP (08:07)
[2020-06-26] MEDS: famotidine 20 mg/2 mL INJ IVP (08:08)
--- NOTE | 2020-06-26 08:15 | P.PN_ITS ---
Subjective Subjective: Interval history: Remains on heated high flow, 70 L, FiO2-100%. On day 3 of Remdesevir. On Precedex drip. Case discussed with Dr. May. Patient has been seen and examined multiple times throughout the day, initially seemed to be stable on heated high flow but as the afternoon progressed showed increased respiratory effort, unable to maintain his saturations appropriately, significant hypertension and increased anxiety. Increased rate of Precedex drip and give a dose of Xanax. Given additional dose of IV Lasix as well. Stat ABG done with noted profound hypoxemia with PO2 of 46 despite FiO2 of 100%. Discussed with family and Dr. May, and decision made to proceed with intubation. This was done by anesthesia and central line and arterial line placed by Dr. May. Continued difficulty with maintaining saturation even with FiO2 of 100% on ventilator. Required pressor support off and on and sedation, currently on Nimbex drip as paralytic. Multiple providers present at bedside for several hours stabilizing patient. Able to get patient accepted to [facility] in [place]. Repeat labs done and reviewed. Medications: Reviewed: Yes Medication Review Details: Active Medications Generic Name Dose Route Start Last Admin Trade Name Freq PRN Reason Stop Dose Admin Acetaminophen 650 mg 06/24/20 20:56 Tylenol PO Q6H PRN Mild/Mod Pain Or Temp >/= 101 Acetylcysteine 100 mg 06/26/20 08:15 Mucomyst INHALATION Q4H.RESPIRATORY S CH Albuterol Sulfate 2 puff 06/25/20 04:52 Ventolin INHALATION Q4H.RESPIRATORY P RN SHORTNESS OF HU TH Albuterol/Ipratrop ium 3 ml 06/25/20 09:23 06/25/20 20:55 Duoneb INHALATION 3 ml Q6H PRN Administration SHORTNESS OF HU TH Albuterol/Ipratrop ium 3 ml 06/26/20 08:15 Duoneb INHALATION Q4H.RESPIRATORY S CH Apixaban 5 mg 06/25/20 09:00 06/26/20 08:05 Eliquis PO 5 mg BID GABY Administration Ascorbic Acid 500 mg 06/25/20 09:00 06/26/20 08:05 Vitamin C PO 500 mg BID GABY Administration Aspirin 81 mg 06/25/20 09:00 06/26/20 08:05 Aspirin Ec PO 81 mg DAILY GABY Administration Benzonatate 100 mg 06/24/20 20:56 Tessalon Pearls PO TID PRN COUGH Budesonide 0.5 mg 06/25/20 09:30 06/25/20 20:55 Pulmicort INHALATION 0.5 mg BID.RESPIRATORY S CH Administration Dexamethasone 6 mg 06/25/20 09:00 06/26/20 08:07 Decadron IVP 6 mg Q24H GABY Administration Famotidine 20 mg 06/24/20 20:56 06/26/20 08:08 Pepcid Inj IVP 20 mg Q12H GABY Administration Hydralazine HCl 10 mg 06/24/20 20:56 06/24/20 22:39 Apresoline IVP 10 mg Q4H PRN Administration Elevated blood pr essure remdesivir (EUA) 1 00 mg/ 100 mls @ 100 mls /hr 06/25/20 15:00 06/26/20 07:20 Sodium Chloride IV 06/28/20 15:59 Infused Q24H GABY Infusion Azithromycin 500 m g/ Sodium 250 mls @ 250 mls /hr 06/25/20 10:00 06/26/20 08:09 Chloride IV Infused Q24H GABY Infusion Protocol Vancomycin HCl 1,5 00 mg/ 250 mls @ 166.667 mls/hr 06/25/20 11:00 06/26/20 01:11 Sodium Chloride IV Infused Q12H GABY Infusion Protocol Dexmedetomidine HC l 400 mcg/ 104 mls @ 0 mls/h r 06/25/20 12:30 06/26/20 07:35 Sodium Chloride IV 0.2 mcg/kg/hr .Q0M GABY 4.9 mls/hr Administration Protocol Per Protocol Montelukast Sodium 10 mg 06/25/20 09:00 06/26/20 08:05 Singulair PO 10 mg DAILY GABY Administration Nebivolol 10 mg 06/25/20 09:20 06/26/20 08:06 Bystolic PO 10 mg DAILY GABY Administration Ondansetron HCl 4 mg 06/24/20 20:56 Zofran IVP Q6H PRN vomiting, or N/V if npo Tamsulosin HCl 0.4 mg 06/24/20 21:00 06/25/20 20:31 Flomax PO 0.4 mg BEDTIME GABY Administration Zinc Gluconate 50 mg 06/25/20 09:00 06/26/20 08:05 Zinc Gluconate PO 50 mg DAILY GABY Administration No Known Allergies Allergy (Verified 06/24/20 13:37) Vitals/I&O/Wt Last Vital Signs Temp 98.2 F 06/26/20 07:53 Pulse 54 L 06/26/20 06:00 Resp 18 06/26/20 06:00 BP 156/88 06/26/20 06:00 Pulse Ox 92 06/26/20 06:00 06/25/20 06/26/20 06/26/20 22:59 06:59 14:59 Intake Total 351.522 / 561.522 286.26 / 847.782 387.303 / 387.303 Output Total 550 / 1575 300 / 1875 Balance -198.478 / -1013.478 -13.74 / -1027.218 387.303 / 387.303 Weight last 48 hrs Weight 91.217 kg Weight 94.982 kg Weight 97.522 kg Physical Exam Const: COMMON NORMALS: no acute distress, patient oriented x3 and alert GENERAL APPEARANCE: cooperative and comfortable ORIENTATION/CONSCIOUSNESS: Yes awake OTHER: -appears fatigued, pleasant HENMT: COMMON NORMALS: normocephalic, atraumatic, hearing grossly normal bilaterally and moist oral mucous membranes HEAD & SCALP: normocephalic and atraumatic Eye: COMMON NORMALS: Equal, round and reactive pupils present, EOMs intact bilaterally and conjunctivae normal CONJUNCTIVA: Yes conjunctivae normal PUPIL: Yes Equal, round and reactive pupils present Neck/C-Spine: COMMON NORMALS: full ROM GENERAL: Yes normal visual inspection and Yes trachea midline Resp: COMMON NORMALS: normal respiratory effort, No retractions and No use of accessory muscles EFFORT & INSPECTION: Yes able to speak in complete sentences, Yes symmetric chest movement and Yes tachypneic AUSCULTATION: rhonchi (scattered) OTHER: -on 70L, FiO2-100% on heated high flow NC Cardio: COMMON NORMALS: regular rate, regular rhythm, S1 normal heart sound present, S2 normal heart sound present and No murmurs present (Cardio) RATE: regular rate RHYTHM: regular rhythm HEART SOUNDS: S1 normal heart sound present and S2 normal heart sound present GI: COMMON NORMALS: Normal to inspection, nondistended, normoactive bowel sounds present, Soft to palpation and non-tender PALPATION: Yes Soft to palpation Extremity: COMMON NORMALS: normal to inspection, full ROM and no clubbing, cyanosis or edema; negative for no pedal edema Neuro: COMMON NORMALS: patient oriented x3, moves all extremities, no focal motor deficits and no sensory deficits noted SENSORIUM/ORIENTATION: Yes alert Psych: COMMON NORMALS: mental status grossly normal, Normal thought process present, cooperative, normal affect and speech normal SPEECH: Yes normal speech THOUGHT PROCESS: Normal thought process present Skin: COMMON NORMALS: no rashes or lesions noted, no jaundice, no petechiae and no mottling GENERAL SKIN EXAM: no rashes or lesions noted Data : 06/26/20 18:30 06/26/20 18:30 Micro: Microbiology 06/24/20 12:23 Blood Culture - Preliminary Blood NEGATIVE TO DATE 06/24/20 12:20 Blood Culture - Preliminary Blood NEGATIVE TO DATE 06/24/20 23:25 MRSA Culture - Final Nose 06/25/20 01:15 Gram Stain - Final Sputum - Expectorated Sputum A&P Assessment and plan (1) COVID-19 virus infection: -Tested positive for COVID-19 on 06/16, continues to be symptomatic with noted hypoxia and currently requiring supplemental oxygen support. Increased oxygen requirement overnight, now on heated high flow with FiO2 of 100%, 70 L -Isolation precautions -continue to monitor respiratory status closely -Supplemental oxygen support as needed, wean as tolerated, home oxygen evaluation prior to discharge if appropriate -Supportive care including zinc, vitamin C, antitussives, breathing treatments as needed, pulmonary toilet, incentive spirometry, flutter valve -continue dexamethasone -on day 3/5 of remdesevir -Noted elevated d-dimer, ferritin, lactic acid, fibrinogen, CRP, continue to trend inflammatory markers. Normal pro-calcitonin -Chest x-ray reported as reticular changes, monitor progression with repeat imaging. CT chest findings noted, discussed with Dr. May -Afebrile, hypertensive, continue to monitor vital signs -Telemetry monitoring -Influenza screen negative, MRSA negative, bacterial antigens, Legionella -blood cx prelim negative -sputum cx pending, gram stain polymicrobial -has been treated with course of Azithromycin and Levaquin. Resumed Azithromycin, continue Vancomycin due to noted GPC in sputum gram stain -due to increased risk of thrombosis, on Eliquis -continue to monitor fluid balance closely, 1 dose of Lasix now, Echo: EF=59%, no RWMA, no baseline on record -on Precedex in case anxiety is contributing to increased work of breathing, some noted bradycardia so need continued telemetry and vital signs monitoring. Xanax PRN. Status: Acute (2) Acute respiratory distress syndrome (ARDS) due to COVID-19 virus: -increased oxygen requirement, on heated high flow, FiO2-100%, 70 L -close monitoring of respiratory status -continued monitoring of vital signs -continue IV steroids, pulmonary toilet -continue IV diuresis, maintain negative fluid balance if possible Status: Acute (3) Hypoxia: -Secondary to COVID-19 infection as noted above -Not oxygen dependent at baseline Status: Acute (4) HTN (hypertension): -Continue to monitor vital signs; intermittent bradycardia -on nebivolol, d/c ARB. Status: Chronic Qualifiers: Hypertension type: essential hypertension Qualified Code(s): I10 - Essential (primary) hypertension (5) BPH (benign prostatic hyperplasia): -on tamsulosin Status: Chronic Qualifiers: Lower urinary tract symptom presence: unspecified whether lower urinary tract symptoms present Qualified Code(s): N40.0 - Benign prostatic hyperplasia without lower urinary tract symptoms Additional A&P Information -low salt diet as tolerated; keep NPO for now due to potential for intubation -hyponatremia, resolved; continue to monitor Na levels, supplementation if needed -GI ppx with famotidine -DVT ppx not needed as on Eliquis -Dispo: home -Code status: FULL code -higher oxygen requirement, increased work of breathing, intubated in the afternoon due to continued decompensation. Attestations Medical Necessity Statement*: Patient requires hospitalization for continued management of COVID-19 infection, developing ARDS, with continued high oxygen requirement, now on vent support. Time Spent in Patient Care: Greater than 35 minutes (>than 50% of time spent in counselling and/or direct pt care on unit) . Critical Care Time: The high probability of a clinically significant, sudden or life threatening deterioration of the patient's [respiratory, cardiovascular] system(s) required my full and direct attention, intervention and personal management. The critical care time is as shown. 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
[2020-06-26] MEDS: FUROsemide 10 mg/mL SDV 2mL 20 MG IVP (09:04)
[2020-06-26] MEDS: ALPRAZolam 0.25 mg Tablet PO ×2 (09:04→16:47)
[2020-06-26] MEDS: ipratropium-albuterol 3 mL Neb INHALATION ×5 (09:10→23:42)
[2020-06-26] MEDS: budesonide 0.5 mg/2 mL Neb INHALATION ×2 (09:10→19:53)
[2020-06-26] MEDS: azithromycin 500 MG in sodium chloride 0.9% 250 ML 250 MG IV (10:59)
[2020-06-26 11:40] LABS: Lactate (Lactic Acid level) 2.9 mmol/L (0.5-2.2)
[2020-06-26 12:59] LABS: Vancomycin Trough 13.3 ug/mL (10-15)
--- NOTE | 2020-06-26 16:33 | PC.NURSE ---
Per Dr. Brunson, Dr. 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 I was not aware of this. Dr. May has been calling the patient's grand daughter and the respiratory therapist, Kim, and giving orders. I ordered a lactic acid per Dr. May. Dr. Brunson has been made aware.
--- NOTE | 2020-06-26 16:35 | PC.RESP ---
Dr. May called for an update on Mr. Ness this RT informed him that the patient is the same as when Dr. May saw him this morning. 70 lpm, 100% FIO2
[2020-06-26] MEDS: FUROsemide 10 mg/mL SDV 4mL 20 MG IVP (16:57)
[2020-06-26 17:06] LABS: ABG PCO2 28.1 mmHg (35-45); ABG PH Result 7.45 (7.35-7.45); Alveolar-Arterial Oxygen Gradi 82.1 mmHg (5-10); Base Excess ABG -3.1 mmol/L (-2.0-2.0); Blood Gas Allen Test Pos; Blood Gas Operator Identificat ED; Blood Gas Sample Site Radial, right; Blood Gas Sample Type Arterial; Carboxyhemoglobin 0.7 %THgb (0.4-20.1); HCO3 ABG 19.4 mmol/L (22-26); Ionized Calcium Level - ABG 1.2 mmol/L (1.1-1.4); Methemoglobin 0.8 % (0.4-1.5); Oxygen Saturation ABG 81.2; PO2 ABG 45.6 mmHg (80.0-100.0); Potassium Level - ABG 4.4 mmol/L (3.5-5.0); Total Hemoglobin 16.3 g/dL (14-18)
--- NOTE | 2020-06-26 17:39 | XRR_ITS ---
PROCEDURE INFORMATION: Exam: XR Chest, 1 View Exam date and time: 06/26/2020 6:24 PM Age: 69 years old Clinical indication: Device placement; Ett placement (vent status); Additional info: Intubation and cvl placement TECHNIQUE: Imaging protocol: XR of the chest Views: 1 view. COMPARISON: CR XR chest 1V portable [id number] 06/26/2020 6:25 AM FINDINGS: Tubes, catheters and devices: A new endotracheal tube ends 1 cm below the mid clavicles. Lungs: Persisting hazy infiltrates in the right upper lobe. Pleural space: Since 6:30 a.m. today there is a new large left pneumothorax measuring up to 5 cm in depth and occupying at least 50% of the left hemithorax volume. Heart/Mediastinum: There is new cardiomediastinal shift towards the right indicating a component of tension. Bones/joints: Unremarkable. XR/XR chest 1V portable [id number] IMPRESSION: 1. New left tension pneumothorax 2. Intubated
--- NOTE | 2020-06-26 18:44 | ANES.PROC ---
Anesthesia Procedures Procedure/Date: 06/26/20 Intubation: Time Out Performed: Yes Consent: requested by attending/covering physician, risks and benefits reviewed and patient agrees to proceed Sedative (amount): versed (propofol 150mg) Paralytic (amount): succinylcholine (120mg) Laryngoscope: Sanjiv ET Tube Size: 8 ET Tube Uncuffed: No Tube Secured Depth (cm): 25 Tube Secured Location: teeth Tube Placement Confirmation: visualized tube passing through cords, equal breath sounds bilaterally, no breath sounds over epigastrium, confirmation by capnometry and color change noted Patient Tolerated Procedure: well and no complications (pt with BP in 70's systolic noted and treated with 100mcg neosynephrine x2 doses to achieve systolic 100's.) Intubation Complications: none Additional Comments: Consulted by Dr May and Dr Brunson who were at bedside. Pt with ventilator settings and sedation per Dr May.
[2020-06-26 19:03] LABS: Basophils % 0.1 %; Hematocrit 41.7 % (42.0-52.0); Hemoglobin 13.5 g/dL (11.7-16.6); Lymphocytes # 0.4 10^3/uL (0.8-4.8); Lymphocytes % 3.6 %; Mean Corpuscular HGB Conc 32.4 g/dL (30.0-36.0); Mean Corpuscular Hemoglobin 26.6 pg (28.0-34.0); Mean Corpuscular Volume 82.1 fL (80-94); Mean Platelet Volume 10.7 fL (7.4-10.4); Monocytes # 1.3 10^3/uL (0.2-0.9); Monocytes % 10.4 %; Neutrophils # 10.55 10^3/uL (1.8-7.7); Neutrophils % 85.3 %; Nucleated Red Blood Cells % 0 %; Platelet Count 392 10^3/cmm (130-400); Red Blood Count 5.08 10^6/uL (4.1-5.3); Red Cell Distribution Width 17.9 % (12.1-15.1); White Blood Count 12.4 10^3/uL (4.0-10.0)
[2020-06-26] MEDS: propofol 1,000 MG/100 ML INJ 5.5 MG IV (19:13)
--- NOTE | 2020-06-26 19:23 | PC.NURSE ---
Went to check on patient, patient stated he felt short of breath. Noticed patient looking more uncomfortable and struggling to breath. Patient began to cough alot as well and sats dropped and sustained in low 80s. Dr Navarrete called to bedside and RT jordana as well. Dr Navarrete stated to increase precedex drip to 0.5 and give xanax on NOV. Scanned and gave to patient. After deep breathing for a few minutes patient stated he was feeling a little better but sats were still in the 80s and I could see patient still struggling with breathing. mely Beyer, at bedside. Dr May contacted and at bedside within minutes and stated plan to intubate. Patient aware and agreed to intubation. Anestesia at bedside. RSI kit at bedside. Anestisia intubated patient. 150 propofol and 120 of succicoline. Right triple lumen femoral catheter was placed by Dr. May. He also placed a right radial artline.
[2020-06-26 19:28] LABS: INR 1.24 (0.8-1.2)
[2020-06-26 19:30] LABS: Fibrinogen 685 mg/dL (174-498)
[2020-06-26 19:31] LABS: D Dimer 1.69 ug/mIFEU (0-0.59)
[2020-06-26 19:37] LABS: Lactate (Lactic Acid level) 3.3 mmol/L (0.5-2.2); Troponin T (5th) Once 7 ng/L (0-15)
--- NOTE | 2020-06-26 19:43 | PC.NURSE ---
Patient sats remained in the 80's. MD May, Byo bermudez, RT at bedside. 10mg Vecoronium ordered to help paralyze patient. Fentanyl and Propofol were also started as well for sedation. See MAR. Started per MD ordered verbally. Precedex was then stopped. MD's were titrating and balancing between levophed, propofol, and fentanyl to keep patients blood pressure stable as well as increase saturations. Patient still very unstable. All MD's at bedside including RT and [place], granddaughter. Crash cart was brought into room. MD May remains on phone with another physician with Dr Navarrete present as well as [place] and warehouse shift supervisor GIOVANNA Palmer. Dr May ordered another 10mg of vecoronium and told to grab out of RSI kit and give now. Patient blood pressure stabilized at the moment and patient paralyzed for the moment. Report was given bedside to GIOVANNA Palmer, nightshift.
[2020-06-26 19:45] LABS: NT Pro B Type Natriuretic Pept 186 pg/mL (0-125); Procalcitonin 0.05 ng/mL (0-0.5)
[2020-06-26 19:56] LABS: Alanine Aminotransferase 17 U/L (0-41); Albumin Level 2.7 g/dL (3.5-5.2); Alkaline Phosphatase 60 IU/L (40-130); Anion Gap 17.1 (5-19); Aspartate Amino Transferase 24 U/L (0-40); Blood Urea Nitrogen 26 mg/dL (8-23); C Reactive Protein 52.2 mg/L (0.0-4.9); Calcium 7.5 mg/dL (8.5-10.5); Carbon Dioxide 20 mmol/L (22-29); Chloride 101 mmol/L (98-107); Ferritin 390 ng/mL (30-400); Globulin 3.8 g/dL (1.3-4.6); Glomerular Filtration Rate 66.4 mL/min (90-130); Glucose 159 mg/dL (65-115); Lactate Dehydrogenase 326 U/L (135-225); Magnesium 2.3 mg/dL (1.7-2.3); Osmolality Calculated 286 mOsm/kg (285-295); Potassium 4.1 mmol/L (3.5-5.1); Sodium 134 mmol/L (136-145); Total Bilirubin 0.5 mg/dL (0.15-1.2); Total Protein 6.5 g/dL (6.6-8.7)
[2020-06-26 19:57] LABS: ABG PCO2 47.4 mmHg (35-45); ABG PH Result 7.29 (7.35-7.45); Base Excess ABG -3.9 mmol/L (-2.0-2.0); HCO3 ABG 22.9 mmol/L (22-26); Oxygen Device VENT; PO2 ABG 54.1 mmHg (80.0-100.0)
[2020-06-26 19:58] LABS: Arterial Blood Gas Hematocrit 47.3 % (42-52); Blood Gas Sample Site ARTLINE; Blood Gas Sample Type ARTERIAL; Blood Gas Vent Mode PC
--- NOTE | 2020-06-26 21:13 | PM.OP ---
Operative Report Date of procedure: June 26, 2020 Procedure time: 1800 Procedure: Central venous access placement Indication: Vascular access post intubation for multiple medications and possible vasopressor administration Refrigeration Houseman(s): Rodríguez May MD Consent: Emergent [place] precautions applied. Site: Right femoral line Catheter: 7 Fr, 20 cm, Triple Lumen Sutured at: 20 cm Anesthesia: None required as patient was just sedated and paralyzed for intubation Description: Area prepped with chlorhexidine and draped in a universal sterile manner. The vessel anatomy and patency was examined by ultrasound probe which was covered with sterile probe cover. The needle was inserted into the vessel under ultrasound guidance, after venous blood aspirated the guidewire was inserted through the needle and kept in situ while the needle was removed. Placement of guidewire in the vein and in relation to the adjacent artery was verified by ultrasound. Catheter was then advanced over the guidewire after dilation and guidewire successfully removed.The catheter was sutured to the skin and sterile dressing with chlorhexidine patch placed. Number of attempts: 1 Dilator applied: 1, number of Dilations: 1 Placement Verified by: Blood draw from all ports and Ultrasound exam EBL: 5 cc Complications:None Ultrasound guidance used:Yes
--- NOTE | 2020-06-26 21:25 | PM.OP ---
Operative Report Date of procedure: June 26, 2020 Procedure: Arterial line placement Indication: Need for invasive BP monitoring Consent: Emergent Site: Right radial artery Anesthesia: None given as patient received sedation and paralytic during intubation Description: Area prepped with chlorhexidine and draped in a sterile manner. Catheter inserted using Seldinger technique. Arterial waveform obtained. Ultrasound guidance used: Yes. EBL: LESS than 2 cc Complications: None Rodríguez May MD Pulmonary, Critical Care and Sleep Medicine
--- NOTE | 2020-06-26 21:30 | PM.CONSULT ---
Providers/Reason For Consult Consulting Physican/Specialty*: Rodríguez May MD/Pulmonary Critical care Reason for Consult*: Impending respiratory failure in COVID +ve Patient Attending Physician: Rosalba Brunson MD Primary Care Provider: DELMAR Gr History of Present Illness History of Present Illness Rafa Lucas is a 69 year old male with PMHx hypertension, BPH presented to ED on 06/24/2020 with complaints of increased generalized weakness, malaise, for the past several days. He was initially diagnosed with COVID-19 approximately 2 weeks ago following a fishing trip with friends to [place]. Since then he has been treated with oral steroids, short course of azithromycin and Levaquin. He is not oxygen dependent at baseline. Has continued to feel poorly particularly over the past few days to the point where he can ambulate for very minimal distances and came to ED. Repeat COVID testing in ED was positive and labs showed leukocytosis with a white count of 11.0, sodium of 130, otherwise normal chemistry, elevated d-dimer, fibrinogen, ferritin, BMP, CRP, lactic acid. Patient was requiring 5 L nasal cannula he has received his first dose of Remdesevir as well as a dose of steroids. Due to need for continued supportive care, close monitoring of respiratory status, supplemental oxygen and continuation of antiviral treatment will be admitted to the viral ICU. Since admission patient oxygen requirements went up to 100% FiO2 70 L on high flow nasal cannula. Attempts are being made to transfer him to higher facility. His mentation was intact throughout this time but today evening at 5 PM patient started desaturating and required endotracheal intubation. Review of Systems General: Reports: 10 or more systems reviewed and unremarkable except in HPI and below and ROS unobtainable due to medical condition Meds/Allergies Home Medications and Allergies Home Medications Medication Instructions Recorded Confirmed Last Taken Type levofloxacin 500 mg tablet 500 mg PO DAILY 5 Days #5 tab 06/20/20 06/24/20 06/23/20 Rx ondansetron HCl 4 mg tablet 4 mg PO Q8H PRN #15 tab 06/23/20 06/24/20 Unknown Rx Vitamin C 1 tab PO DAILY 06/24/20 06/24/20 Unknown History Vitamin D3 1 tab PO DAILY 06/24/20 06/24/20 Unknown History acetaminophen [Tylenol] 325 - 975 mg PO PRN 06/24/20 06/24/20 Unknown History aspirin 81 mg PO DAILY 06/24/20 06/24/20 06/24/20 History candesartan 32 mg PO DAILY 06/24/20 06/24/20 06/24/20 History indomethacin 50 mg PO TID 06/24/20 06/24/20 Unknown History montelukast [Singulair] 10 mg PO DAILY 06/24/20 06/24/20 Unknown History nebivolol [Bystolic] 10 mg PO DAILY 06/24/20 06/24/20 06/23/20 History prednisone See Rx Instructions .ROUTE .COMPLEX 06/24/20 06/24/20 06/24/20 History tamsulosin [Flomax] 0.4 mg PO BEDTIME 06/24/20 06/24/20 06/23/20 History zinc 50 mg PO DAILY 06/24/20 06/24/20 Unknown History Allergies Allergy/AdvReac Type Severity Reaction Status Date / Time No Known Allergies Allergy Verified 06/24/20 13:37 Current Medications Current Medications Generic Name Dose Route Start Last Admin Trade Name Freq PRN Reason Stop Dose Admin Acetylcysteine 100 mg 06/26/20 08:15 06/26/20 19:52 Mucomyst INHALATION 100 mg Q4H.RESPIRATORY GABY Administration Albuterol/Ipratropium 3 ml 06/25/20 09:23 06/25/20 20:55 Duoneb INHALATION 3 ml Q6H PRN Administration SHORTNESS OF BREATH Albuterol/Ipratropium 3 ml 06/26/20 08:15 06/26/20 19:53 Duoneb INHALATION 3 ml Q4H.RESPIRATORY GABY Administration Aspirin 81 mg 06/25/20 09:00 06/26/20 08:05 Aspirin Ec PO 81 mg DAILY GABY Administration Budesonide 0.5 mg 06/25/20 09:30 06/26/20 19:53 Pulmicort INHALATION 0.5 mg BID.RESPIRATORY GABY Administration Dexamethasone 6 mg 06/25/20 09:00 06/26/20 08:07 Decadron IVP 6 mg Q24H GABY Administration Famotidine 20 mg 06/24/20 20:56 06/26/20 08:08 Pepcid Inj IVP 20 mg Q12H GABY Administration Furosemide 20 mg 06/26/20 09:00 06/26/20 09:04 Lasix IVP 20 mg Q24H GABY Administration Hydralazine HCl 10 mg 06/24/20 20:56 06/24/20 22:39 Apresoline IVP 10 mg Q4H PRN Administration Elevated blood pressure remdesivir (EUA) 100 mg/ 100 mls @ 100 mls/hr 06/25/20 15:00 06/26/20 15:48 Sodium Chloride IV 06/28/20 15:59 Infused Q24H GABY Infusion Azithromycin 500 mg/ Sodium 250 mls @ 250 mls/hr 06/25/20 10:00 06/26/20 15:49 Chloride IV Infused Q24H GABY Infusion Protocol Dexmedetomidine HCl 400 mcg/ 104 mls @ 0 mls/hr 06/25/20 12:30 06/26/20 19:56 Sodium Chloride IV 0 mcg/kg/hr .Q0M GABY 0 mls/hr Titration Protocol Per Protocol Fentanyl 1,000 mcg/ Sodium 100 mls @ 0 mls/hr 06/26/20 18:00 06/26/20 19:12 Chloride IV 75 mcg/hr .Q0M GABY 7.5 mls/hr Administration Protocol Per Protocol Propofol 1,000 mg in 100 mls @ 0 mls/hr 06/26/20 19:15 06/26/20 19:13 Diprivan IV 10 mcg/kg/min .Q0M GABY 5.5 mls/hr Administration Protocol Per Protocol Tamsulosin HCl 0.4 mg 06/24/20 21:00 06/25/20 20:31 Flomax PO 0.4 mg BEDTIME GABY Administration PFSH Acute PFSH: Medical History BPH (benign prostatic hyperplasia) Cough HTN (hypertension) Lower respiratory infection Sinusitis Surgical History Hx of appendectomy Family History Other Hypertension Social History (Updated 06/24/20 @ 20:08 by Rosalba Brunson MD) Smoking and tobacco status: never smoked Alcohol intake: current Alcohol intake frequency: holidays/special occasions only Substance/Drug Use: never Household members: spouse Marital status: Current occupational status: retired Vitals/I&O/Wt Last Vital Signs Temp 98.5 F 06/26/20 16:00 Pulse 109 H 06/26/20 21:19 Resp 14 06/26/20 21:19 BP 222/131 06/26/20 18:20 Pulse Ox 88 L 06/26/20 21:19 06/26/20 06/26/20 06/26/20 06:59 14:59 22:59 Intake Total 286.26 / 847.782 500.006 / 500.006 657.103 / 1157.109 Output Total 300 / 1875 250 / 250 Balance -13.74 / -1027.218 250.006 / 250.006 657.103 / 907.109 Weight last 48 hrs Weight 201 lb 1.6 oz Weight 209 lb 6.4 oz Physical Exam Urinary Catheter Management^: [place]: Cath Placed During This Visit: yes Urinary Catheter Date of Insertion: 06/26/20 Urinary Catheter Time of Insertion: 09:42 Data Micro: Micro: Microbiology 06/25/20 01:15 Gram Stain - Final Sputum - Expector ated Sputum Sputum Culture - P reliminary Coding Level of Care Code 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
--- NOTE | 2020-06-26 21:45 | P.TS_ITS ---
Transfer Summary Providers Date of Admission: 06/24/20 14:39 Date of Discharge: 06/26/20 Attending Provider at Admission: Rosalba Brunson MD Attending Provider at Transfer: Rosalba Brunson MD Consults: Anesthesia Primary Care Provider: DELMAR Gr Anticipated Date of Transfer: Anticipated date of transfer: 06/26/20 Receiving Facility & Provider: Receiving Provider: [Dr. Aggie Baez] Receiving facility: [[place], [place]] Diagnoses at Discharge Discharge Diagnosis (1) COVID-19 virus infection: Status: Acute (2) Acute respiratory distress syndrome (ARDS) due to COVID-19 virus: Status: Acute (3) Hypoxia: Status: Acute (4) HTN (hypertension): Status: Chronic Qualifiers: Hypertension type: essential hypertension Qualified Code(s): I10 - Essential (primary) hypertension (5) BPH (benign prostatic hyperplasia): Status: Chronic Qualifiers: Lower urinary tract symptom presence: unspecified whether lower urinary tract symptoms present Qualified Code(s): N40.0 - Benign prostatic hyperplasia without lower urinary tract symptoms Reason for Visit Reason for Visit: SOB, COVID + 2 WKS AGO Hospital Course Hospital Course: Patient was admitted to the viral ICU after having been found to be positive for COVID-19 infection. He initially had a modest oxygen requirement that then rapidly increased to the point where he required heated high flow oxygen with maximum FiO2 and at 70 L. Despite this as well as IV steroids, Remdesevir and other supportive care, patient is unable to maintain his oxygenation appropriately and in fact started to decompensate rather rapidly. This afternoon he began to have increased work of breathing, significant hypertension, tachypnea, tachycardia and hypoxia. Despite continued care and additional diuresis, patient continued to decompensate and was subsequently intubated by anesthesia. Pulmonology had been following the patient and agreed to care plan including intubation. Following mechanical ventilation support oxygen saturation remained in the 80s and patient was intermittently hypotensive requiring pressor support, sedation and was started on Nimbex drip as a paralytic. During follow-up imaging patient was noted to have developed a large left-sided pneumothorax, chest tube placed by Dr. May with noted improvement in oxygenation, hemodynamic stability. Currently working on decreasing PEEP and potentially FiO2 if repeat ABG shows improved oxygenation. In light of need for mechanical ventilator support, clinical decompensation and COVID-19 infection with ARDS, transfer to a higher level of care was offered as an option to family and patient which they were agreeable to. Case was discussed extensively with Dr. Aggie Baez at [facility] in [place] and patient was accepted for transfer. Unfortunately during the process of arranging for transportation due to poor weather patient is unable to be transported via air at this time. He is somewhat stable at this time and will continue supportive care, vent support and monitoring of chest tube. Plan for transfer is currently on hold. Physical Exam Const: COMMON NORMALS: no acute distress GENERAL APPEARANCE: patient mechanically ventilated OTHER: -sedated and paralyzed HENMT: COMMON NORMALS: normocephalic and atraumatic HEAD & SCALP: normocephalic and atraumatic Eye: COMMON NORMALS: Equal, round and reactive pupils present, EOMs intact bilaterally and conjunctivae normal CONJUNCTIVA: Yes conjunctivae normal PUPIL: Yes Equal, round and reactive pupils present Neck/C-Spine: COMMON NORMALS: full ROM GENERAL: Yes normal visual inspection and Yes trachea midline Resp: EFFORT & INSPECTION: Yes tachypneic, Yes respiratory distress, Yes labored, Yes Actively coughing bronchospastic and Yes uses accessory muscles OTHER: -on vent support (pressure control), FiO2-100%, PEEP-14 Cardio: COMMON NORMALS: regular rate, regular rhythm, S1 normal heart sound present, S2 normal heart sound present and No murmurs present (Cardio) RATE: regular rate and tachycardic (intermittently) RHYTHM: regular rhythm HEART SOUNDS: S1 normal heart sound present and S2 normal heart sound present GI: COMMON NORMALS: Normal to inspection, nondistended, normoactive bowel sounds present, Soft to palpation and non-tender PALPATION: Yes Soft to palpation : BLADDER/KIDNEY EXAM: Yes catheter in place Catheter type (Male): urethral OTHER: -R femoral central line Extremity: COMMON NORMALS: normal to inspection and no pedal edema NARRATIVE EXTREMITY EXAM: -intermittently cyanotic feet GENERAL: Yes vascular access ( R arterial line) Neuro: OTHER: -sedated and paralyzed Psych: OTHER: -sedated and paralyzed Skin: COMMON NORMALS: no rashes or lesions noted, no jaundice, no petechiae and no mottling GENERAL SKIN EXAM: no rashes or lesions noted Urinary Catheter Management^: Wyn[place]: Cath Placed During This Visit: yes Urinary Catheter Date of Insertion: 06/26/20 Urinary Catheter Time of Insertion: 09:42 TS Data Data Completed and Pending: Completed Studies During Hospitalization Category Date Time Status CT chest wo con 7 1250 Urgent Cat Scan 06/25/20 09:17 Completed XR chest 1V cristina ble [id number] Routine Exams 06/26/20 06:06 Completed XR chest 1V cristina ble [id number] Stat Exams 06/24/20 11:54 Completed CV echo complete* [id number] Routine Ultrasound 06/25/20 10:21 Completed Pending at discharge Category Date Time Status XR chest 1V cristina ble [id number] Stat Exams 06/26/20 17:39 Taken ABG FULL [Arteria l Blood Gas Full] Stat Lab 06/26/20 18:27 Received ABG ONLY [Arteria l Blood Gas W/O Co ox] Routine Lab 06/25/20 10:00 Results ABG ONLY [Arteria l Blood Gas W/O Co ox] Stat Lab 06/26/20 19:50 Results Blood Culture Sta t Lab 06/24/20 12:23 Results Sputum Culture an d Gram Stain Stat Lab 06/25/20 01:15 Results Sputum Culture an d Gram Stain Stat Lab 06/25/20 18:18 Received Vancomycin Trough Timed Lab 06/27/20 12:00 Ordered Labs from last 24 hours 06/26/20 06/26/20 06/26/20 19:50 18:30 18:30 WBC RBC Hgb Hct MCV MCH MCHC RDW Plt Count MPV Neut % (Auto) Lymph % (Auto) [place] % (Auto) Eos % (Auto) Baso % (Auto) Neut # (Auto) Lymph # (Auto) [place] # (Auto) Eos # (Auto) Baso # (Auto) Nucleated RBC % (a uto) Nucleated RBCs # PT INR Fibrinogen D-Dimer Specimen Type Arterial Sample Site Artline ABG pH 7.29 L ABG pCO2 47.4 H ABG pO2 54.1 L ABG HCO3 22.9 ABG O2 Saturation ABG Base Excess -3.9 L Tomy Test N/a A-a O2 Gradient Hematocrit 47.3 Hgb O2 Saturation Carboxyhemoglobin Methemoglobin Total Hemoglobin Ionized Calcium Respiration Rate 14.0 O2 Delivery Device Vent O2 Liters/Min Vent Mode Pc Spontaneous Rate 14.0 FiO2 100.0 PEEP 14.0 [facility] [employer] [employer] ID Pending Sodium Potassium Chloride Carbon Dioxide Anion Gap BUN Creatinine GFR Calculation Glucose Calculated Osmolal ity Lactate 3.3 H Calcium Magnesium Ferritin Total Bilirubin AST ALT Alkaline Phosphata se Lactate Dehydrogen ase Troponin T Gen 5 n g/L 7 C-Reactive Protein NT-Pro-B Natriuret Pep Total Protein Albumin Globulin Procalcitonin Vancomycin Trough 06/26/20 06/26/20 06/26/20 18:30 18:30 18:30 WBC 12.4 H RBC 5.08 Hgb 13.5 Hct 41.7 L MCV 82.1 MCH 26.6 L MCHC 32.4 RDW 17.9 H Plt Count 392 MPV 10.7 H Neut % (Auto) 85.3 Lymph % (Auto) 3.6 [place] % (Auto) 10.4 Eos % (Auto) 0.0 Baso % (Auto) 0.1 Neut # (Auto) 10.55 H Lymph # (Auto) 0.4 L [place] # (Auto) 1.3 H Eos # (Auto) 0.0 Baso # (Auto) 0.0 Nucleated RBC % (a uto) 0 Nucleated RBCs # 0.0 PT 16.10 H INR 1.24 H Fibrinogen 685 H D-Dimer 1.69 H Specimen Type Sample Site ABG pH ABG pCO2 ABG pO2 ABG HCO3 ABG O2 Saturation ABG Base Excess Tomy Test A-a O2 Gradient Hematocrit Hgb O2 Saturation Carboxyhemoglobin Methemoglobin Total Hemoglobin Ionized Calcium Respiration Rate O2 Delivery Device O2 Liters/Min Vent Mode Spontaneous Rate FiO2 PEEP Specimen Drawn By [employer] ID Sodium 134 L Potassium 4.1 Chloride 101 Carbon Dioxide 20 L Anion Gap 17.1 BUN 26 H Creatinine 1.1 GFR Calculation 66.4 L Glucose 159 H Calculated Osmolal ity 286 Lactate Calcium 7.5 L Magnesium 2.3 Ferritin 390 Total Bilirubin 0.5 AST 24 ALT 17 Alkaline Phosphata se 60 Lactate Dehydrogen ase 326 H Troponin T Gen 5 n g/L C-Reactive Protein 52.2 H NT-Pro-B Natriuret Pep 186 H Total Protein 6.5 L Albumin 2.7 L Globulin 3.8 Procalcitonin 0.05 Vancomycin Trough 06/26/20 06/26/20 06/26/20 18:27 17:00 11:15 WBC RBC Hgb Hct MCV MCH MCHC RDW Plt Count MPV Neut % (Auto) Lymph % (Auto) [place] % (Auto) Eos % (Auto) Baso % (Auto) Neut # (Auto) Lymph # (Auto) [place] # (Auto) Eos # (Auto) Baso # (Auto) Nucleated RBC % (a uto) Nucleated RBCs # PT INR Fibrinogen D-Dimer Specimen Type Pending Arterial Sample Site Pending Radial, right ABG pH Pending 7.45 ABG pCO2 Pending 28.1 L ABG pO2 Pending 45.6 L ABG HCO3 Pending 19.4 L ABG O2 Saturation Pending 81.2 ABG Base Excess Pending -3.1 L Tomy Test Pending Pos A-a O2 Gradient Pending 82.1 H Hematocrit Pending 50.0 Hgb O2 Saturation Pending 80.0 L Carboxyhemoglobin Pending 0.7 Methemoglobin Pending 0.8 Total Hemoglobin Pending 16.3 Ionized Calcium Pending 1.2 Respiration Rate O2 Delivery Device Pending Not Reportable O2 Liters/Min 70.0 Vent Mode Spontaneous Rate FiO2 100.0 PEEP Specimen Drawn By [employer] ID Pending Ed Sodium Pending 138.0 Potassium Pending 4.4 Chloride Carbon Dioxide Anion Gap BUN Creatinine GFR Calculation Glucose Pending 169.0 H Calculated Osmolal ity Lactate 2.9 H Calcium Magnesium Ferritin Total Bilirubin AST ALT Alkaline Phosphata se Lactate Dehydrogen ase Troponin T Gen 5 n g/L C-Reactive Protein NT-Pro-B Natriuret Pep Total Protein Albumin Globulin Procalcitonin Vancomycin Trough 06/26/20 06/26/20 06/26/20 11:15 05:00 04:30 WBC RBC Hgb Hct MCV MCH MCHC RDW Plt Count MPV Neut % (Auto) Lymph % (Auto) [place] % (Auto) Eos % (Auto) Baso % (Auto) Neut # (Auto) Lymph # (Auto) [place] # (Auto) Eos # (Auto) Baso # (Auto) Nucleated RBC % (a uto) Nucleated RBCs # PT INR Fibrinogen D-Dimer Specimen Type Arterial Sample Site Radial, right ABG pH 7.48 H ABG pCO2 30.9 L ABG pO2 72.6 L ABG HCO3 22.8 ABG O2 Saturation ABG Base Excess 0.4 Tomy Test Pos A-a O2 Gradient Hematocrit 56.5 H Hgb O2 Saturation Carboxyhemoglobin Methemoglobin Total Hemoglobin Ionized Calcium Respiration Rate O2 Delivery Device Nc O2 Liters/Min 70.0 Vent Mode Spontaneous Rate FiO2 100.0 PEEP Specimen Drawn By Decorative [employer] App[employer]ice ID vossa Sodium Potassium Chloride Carbon Dioxide Anion Gap BUN Creatinine GFR Calculation Glucose Calculated Osmolal ity Lactate Calcium Magnesium Ferritin Total Bilirubin AST ALT Alkaline Phosphata se Lactate Dehydrogen ase Troponin T Gen 5 n g/L C-Reactive Protein NT-Pro-B Natriuret Pep 294 H Total Protein Albumin Globulin Procalcitonin Vancomycin Trough 13.3 06/26/20 06/26/20 04:30 04:30 WBC 8.8 RBC 5.75 H Hgb 15.2 Hct 47.5 MCV 82.6 MCH 26.4 L MCHC 32.0 RDW 18.3 H Plt Count 325 MPV 11.3 H Neut % (Auto) 83.8 Lymph % (Auto) 7.1 [place] % (Auto) 8.4 Eos % (Auto) 0.0 Baso % (Auto) 0.0 Neut # (Auto) 7.35 Lymph # (Auto) 0.6 L [place] # (Auto) 0.7 Eos # (Auto) 0.0 Baso # (Auto) 0.0 Nucleated RBC % (a uto) 0 Nucleated RBCs # 0.0 PT INR Fibrinogen D-Dimer Specimen Type Sample Site ABG pH ABG pCO2 ABG pO2 ABG HCO3 ABG O2 Saturation ABG Base Excess Tomy Test A-a O2 Gradient Hematocrit Hgb O2 Saturation Carboxyhemoglobin Methemoglobin Total Hemoglobin Ionized Calcium Respiration Rate O2 Delivery Device O2 Liters/Min Vent Mode Spontaneous Rate FiO2 PEEP Specimen Drawn By Decorative [employer] Apprentice ID Sodium 137 Potassium 4.3 Chloride 102 Carbon Dioxide 23 Anion Gap 16.3 BUN 28 H Creatinine 1.0 GFR Calculation 74.1 L Glucose 118 H Calculated Osmolal ity 291 Lactate Calcium 8.6 Magnesium Ferritin Total Bilirubin 0.7 AST 22 ALT 17 Alkaline Phosphata se 65 Lactate Dehydrogen ase Troponin T Gen 5 n g/L C-Reactive Protein NT-Pro-B Natriuret Pep Total Protein 7.3 Albumin 3.0 L Globulin 4.3 Procalcitonin Vancomycin Trough Vitals: Last Vital Signs Temp 98.5 F 06/26/20 16:00 Pulse 109 H 06/26/20 21:19 Resp 14 06/26/20 21:19 BP 222/131 06/26/20 18:20 Pulse Ox 88 L 10/08/20 21:19 TS Medications Medications Home Medications levofloxacin 500 mg tablet 500 mg PO DAILY 5 Days #5 tab 06/20/20 [Rx Confirmed 06/24/20] ondansetron HCl 4 mg tablet 4 mg PO Q8H PRN #15 tab 06/23/20 [Rx Confirmed 06/24/20] Vitamin C 1 tab PO DAILY 06/24/20 [History Confirmed 06/24/20] Vitamin D3 1 tab PO DAILY 06/24/20 [History Confirmed 06/24/20] acetaminophen [Tylenol] 325 - 975 mg PO PRN 06/24/20 [History Confirmed 06/24/20] aspirin 81 mg PO DAILY 06/24/20 [History Confirmed 06/24/20] candesartan 32 mg PO DAILY 06/24/20 [History Confirmed 06/24/20] indomethacin 50 mg PO TID 06/24/20 [History Confirmed 06/24/20] montelukast [Singulair] 10 mg PO DAILY 06/24/20 [History Confirmed 06/24/20] nebivolol [Bystolic] 10 mg PO DAILY 06/24/20 [History Confirmed 06/24/20] prednisone See Rx Instructions .ROUTE .COMPLEX 06/24/20 [History Confirmed 06/24/20] tamsulosin [Flomax] 0.4 mg PO BEDTIME 06/24/20 [History Confirmed 06/24/20] zinc 50 mg PO DAILY 06/24/20 [History Confirmed 06/24/20] Active Medications Acetaminophen (Tylenol) 650 mg PO Q6H PRN PRN Reason: Mild/Mod Pain Or Temp >/= 101 Acetylcysteine (Mucomyst) 100 mg INHALATION Q4H.RESPIRATORY GABY Last Admin: 06/26/20 19:52 Dose: 100 mg Documented by: Albuterol Sulfate (Ventolin) 2 puff INHALATION Q4H.RESPIRATORY PRN PRN Reason: SHORTNESS OF BREATH Albuterol/Ipratropium (Duoneb) 3 ml INHALATION Q6H PRN PRN Reason: SHORTNESS OF BREATH Last Admin: 06/25/20 20:55 Dose: 3 ml Documented by: Albuterol/Ipratropium (Duoneb) 3 ml INHALATION Q4H.RESPIRATORY GABY Last Admin: 06/26/20 19:53 Dose: 3 ml Documented by: Aspirin (Aspirin Ec) 81 mg PO DAILY GABY Last Admin: 06/26/20 08:05 Dose: 81 mg Documented by: Benzonatate (Tessalon Pearls) 100 mg PO TID PRN PRN Reason: COUGH Budesonide (Pulmicort) 0.5 mg INHALATION BID.RESPIRATORY GABY Last Admin: 06/26/20 19:53 Dose: 0.5 mg Documented by: Dexamethasone (Decadron) 6 mg IVP Q24H GABY Last Admin: 06/26/20 08:07 Dose: 6 mg Documented by: Famotidine (Pepcid Inj) 20 mg IVP Q12H GABY Last Admin: 06/26/20 08:08 Dose: 20 mg Documented by: Furosemide (Lasix) 20 mg IVP Q24H GABY Last Admin: 06/26/20 09:04 Dose: 20 mg Documented by: Hydralazine HCl (Apresoline) 10 mg IVP Q4H PRN PRN Reason: Elevated blood pressure Last Admin: 06/24/20 22:39 Dose: 10 mg Documented by: remdesivir (EUA) 100 mg/ (Sodium Chloride) 100 mls @ 100 mls/hr IV Q24H [facility] Stop: 06/28/20 15:59 Last Infusion: 06/26/20 15:48 Dose: Infused Documented by: Azithromycin 500 mg/ Sodium (Chloride) 250 mls @ 250 mls/hr IV Q24H GABY; Protocol Last Infusion: 06/26/20 15:49 Dose: Infused Documented by: Dexmedetomidine HCl 400 mcg/ (Sodium Chloride) 104 mls @ 0 mls/hr IV .Q0M GABY; Protocol Last Titration: 06/26/20 19:56 Dose: 0 mcg/kg/hr, 0 mls/hr Documented by: Vancomycin HCl 1,500 mg/ (Sodium Chloride) 250 mls @ 166.667 mls/hr IV Q12H GABY; Protocol Norepinephrine Bitartrate 4 mg (/ Dextrose) 254 mls @ 0 mls/hr IV .Q0M GABY; Protocol Sodium Chloride (Sodium Chloride 0.9%) 1,000 mls @ 100 mls/hr IV .Q10H GABY Fentanyl 1,000 mcg/ Sodium (Chloride) 100 mls @ 0 mls/hr IV .Q0M GABY; Protocol Last Admin: 06/26/20 19:12 Dose: 75 mcg/hr, 7.5 mls/hr Documented by: Vasopressin 100 unit/ Sodium (Chloride) 100 mls @ 0 mls/hr IV .Q0M GABY; Protocol Propofol (Diprivan) 1,000 mg in 100 mls @ 0 mls/hr IV .Q0M GABY; Protocol Propofol (Diprivan) 1,000 mg in 100 mls @ 0 mls/hr IV .Q0M GABY; Protocol Last Admin: 06/26/20 19:13 Dose: 10 mcg/kg/min, 5.5 mls/hr Documented by: Fentanyl 1,000 mcg/ Sodium (Chloride) 100 mls @ 0 mls/hr IV .Q0M GABY; Protocol Midazolam HCl 100 mg/ Sodium (Chloride) 100 mls @ 0 mls/hr IV .Q0M GABY; Protocol Cisatracurium Besylate 100 mg/ (Sodium Chloride) 100 mls @ 0 mls/hr IV CONT GABY; Protocol Ondansetron HCl (Zofran) 4 mg IVP Q6H PRN PRN Reason: vomiting, or N/V if npo Tamsulosin HCl (Flomax) 0.4 mg PO BEDTIME GABY Last Admin: 06/25/20 20:31 Dose: 0.4 mg Documented by: Discharge Plan Discharge Patient Disposition: Xfer Other Condition: Critical Prescriptions: No Action levofloxacin 500 mg tablet 500 mg PO DAILY 5 Days Qty: 5 RF: 0 ondansetron HCl [Zofran] 4 mg tablet 4 mg PO Q8H PRN (Reason: nausea and vomiting) Qty: 15 RF: 0 Tylenol 325 mg Tablet 325 - 975 mg PO PRN RF: 0 aspirin 81 mg Tablet,Delayed Release (Dr/Ec) 81 mg PO DAILY RF: 0 Flomax 0.4 mg Capsule 0.4 mg PO BEDTIME RF: 0 indomethacin 50 mg capsule 50 mg PO TID RF: 0 candesartan 32 mg tablet 32 mg PO DAILY RF: 0 Singulair 10 mg Tablet 10 mg PO DAILY RF: 0 zinc 50 mg Tablet 50 mg PO DAILY RF: 0 Bystolic 10 mg Tablet 10 mg PO DAILY RF: 0 Vitamin C 1 tab PO DAILY RF: 0 Vitamin D3 1 tab PO DAILY RF: 0 prednisone 20 mg tablet See Rx Instructions .ROUTE .COMPLEX RF: 0 Referrals: Haverstick,Stiven E, MD [Referring] - 4-7 days Transfer Attestations Time Spent in Transfer Care*: critical care time Critical Care Time (min): 90 Specific Discharge Activities: Specific discharge activities: educating and/or supporting family/caregiver, discussing with pcp/other providers (anesthesia, pulmonology, RT), documenting/other paperwork and evaluating patient/reviewing data Status at Transfer: Cognitive status at transfer: other (sedated) , Functional status at transfer: bed bound Overall status at transfer: patient has a new baseline Quality Metrics Clinical Quality Measures: During this hospital stay, did patient experience: None Coding Level of Care Code Acute Sustainability Project Coordinator for Chg Fwd Exam Comprehensive Diagnoses COVID-19 virus infection U07.1 Acute respiratory distress syndrome (ARDS) due to COVID-19 virus U07.1; J80 Hypoxia R09.02 HTN (hypertension) I10 Hypertension type: essential hypertension BPH (benign prostatic hyperplasia) N40.0 Lower urinary tract symptom presence: unspecified whether lower urinary tract symptoms present
--- NOTE | 2020-06-26 22:25 | XRR_ITS ---
PROCEDURE INFORMATION: Exam: XR Chest, 1 View Exam date and time: 06/26/2020 10:50 PM Age: 69 years old Clinical indication: Device placement; Patient HX: Large L pneumothorax, S/P chest tube placement TECHNIQUE: Imaging protocol: XR of the chest Views: 1 view. COMPARISON: CR XR chest 1V portable [id number] 06/26/2020 6:09 PM FINDINGS: Tubes, catheters and devices: The endotracheal tube is appropriately positioned in the distal thoracic trachea with the tip above the tianna. Lungs: There is extensive opacity throughout the right lung which is stable. Pleural space: Left pneumothorax is markedly decreased in size since the prior chest radiograph approximately 4 hours ago. There is a persistent left pneumothorax of approximately 30%. There is a small bore left chest tube visible in the lateral lower left hemithorax. Heart/Mediastinum: Rightward mediastinal shift visible on the prior chest radiograph is decreased. Cardiomediastinal contours are partially obscured due to rotation and mediastinal shift. There is no gross cardiac enlargement. Bones/joints: Bones are unremarkable. XR/XR chest 1V portable [id number] IMPRESSION: 1. Markedly decreased size of a left pneumothorax, now measuring approximately 30%. 2. Decreased rightward mediastinal shift. Rightward mediastinal shift is due at least in part to volume loss in the right lung as seen on prior chest CT 06/25/2020. 3. Persistent consolidation of the majority of the right lung. 4. Satisfactory endotracheal tube position. 5. Small bore left chest tube positioned along the lateral left lung base.
--- NOTE | 2020-06-26 23:20 | PM.CONSULT ---
Providers/Reason For Consult Consulting Physican/Specialty*: Rodríguez May MD/Pulmonary Critical Care Reason for Consult*: Worsening acute Hypoxemic respiratory failure Attending Physician: Rosalba Brunson MD Primary Care Provider: DELMAR Gr History of Present Illness History of Present Illness Rafa Lucas is a 69 year old male with PMHx hypertension, BPH presented to ED on 06/24/2020 with complaints of increased generalized weakness, malaise, for the past several days. He was initially diagnosed with COVID-19 approximately 2 weeks ago following a fishing trip with friends to [place]. Since then he has been treated with oral steroids, short course of azithromycin and Levaquin. He is not oxygen dependent at baseline. Has continued to feel poorly particularly over the past few days to the point where he can ambulate for very minimal distances and came to ED. Repeat COVID testing in ED was positive and labs showed leukocytosis with a white count of 11.0, sodium of 130, otherwise normal chemistry, elevated d-dimer, fibrinogen, ferritin, BMP, CRP, lactic acid. Patient was requiring 5 L nasal cannula he has received his first dose of Remdesevir as well as a dose of steroids. Due to need for continued supportive care, close monitoring of respiratory status, supplemental oxygen and continuation of antiviral treatment will be admitted to the viral ICU. Since admission patient oxygen requirements went up to 100% FiO2 70 L on high flow nasal cannula. Attempts are being made to transfer him to higher facility. His mentation was intact throughout this time but today evening at 5 PM patient started desaturating and required endotracheal intubation. On ventilator patient was saturating 85 and was requiring 100% FiO2 and PEEP of 14, everything assumed secondary to worsening COVID and patient was sedated with fentanyl, Versed, and paralyzed with Nimbex after placing a right femoral central line and right radial arterial line. Discussed with Dr. Aggie Baez at [facility] on [address] and preparations were made transfer patient via air. Meanwhile chest x-ray postintubation showed significant left pneumothorax and immediately 6 Andorran pigtail was placed and connected to suction. Left lung expanded and thereby saturations improved to 96 and patient was PEEP came down to 5. Otherwise patient is hemodynamically stable. Review of Systems General: Reports: 10 or more systems reviewed and unremarkable except in HPI and below and ROS unobtainable due to medical condition Meds/Allergies Home Medications and Allergies Home Medications Medication Instructions Recorded Confirmed Last Taken Type levofloxacin 500 mg tablet 500 mg PO DAILY 5 Days #5 tab 06/20/20 06/24/20 06/23/20 Rx ondansetron HCl 4 mg tablet 4 mg PO Q8H PRN #15 tab 06/23/20 06/24/20 Unknown Rx Vitamin C 1 tab PO DAILY 06/24/20 06/24/20 Unknown History Vitamin D3 1 tab PO DAILY 06/24/20 06/24/20 Unknown History acetaminophen [Tylenol] 325 - 975 mg PO PRN 06/24/20 06/24/20 Unknown History aspirin 81 mg PO DAILY 06/24/20 06/24/20 06/24/20 History candesartan 32 mg PO DAILY 06/24/20 06/24/20 06/24/20 History indomethacin 50 mg PO TID 06/24/20 06/24/20 Unknown History montelukast [Singulair] 10 mg PO DAILY 06/24/20 06/24/20 Unknown History nebivolol [Bystolic] 10 mg PO DAILY 06/24/20 06/24/20 06/23/20 History prednisone See Rx Instructions .ROUTE .COMPLEX 06/24/20 06/24/20 06/24/20 History tamsulosin [Flomax] 0.4 mg PO BEDTIME 06/24/20 06/24/20 06/23/20 History zinc 50 mg PO DAILY 06/24/20 06/24/20 Unknown History Allergies Allergy/AdvReac Type Severity Reaction Status Date / Time No Known Allergies Allergy Verified 06/24/20 13:37 Current Medications Current Medications Generic Name Dose Route Start Last Admin Trade Name Freq PRN Reason Stop Dose Admin Acetylcysteine 100 mg 06/26/20 08:15 06/26/20 19:52 Mucomyst INHALATION 100 mg Q4H.RESPIRATORY GABY Administration Albuterol/Ipratropium 3 ml 06/25/20 09:23 06/25/20 20:55 Duoneb INHALATION 3 ml Q6H PRN Administration SHORTNESS OF BREATH Albuterol/Ipratropium 3 ml 06/26/20 08:15 06/26/20 19:53 Duoneb INHALATION 3 ml Q4H.RESPIRATORY GABY Administration Aspirin 81 mg 06/25/20 09:00 06/26/20 08:05 Aspirin Ec PO 81 mg DAILY GABY Administration Budesonide 0.5 mg 06/25/20 09:30 06/26/20 19:53 Pulmicort INHALATION 0.5 mg BID.RESPIRATORY GABY Administration Dexamethasone 6 mg 06/25/20 09:00 06/26/20 08:07 Decadron IVP 6 mg Q24H GABY Administration Famotidine 20 mg 06/24/20 20:56 06/26/20 08:08 Pepcid Inj IVP 20 mg Q12H GABY Administration Furosemide 20 mg 06/26/20 09:00 06/26/20 09:04 Lasix IVP 20 mg Q24H GABY Administration Hydralazine HCl 10 mg 06/24/20 20:56 06/24/20 22:39 Apresoline IVP 10 mg Q4H PRN Administration Elevated blood pressure remdesivir (EUA) 100 mg/ 100 mls @ 100 mls/hr 06/25/20 15:00 06/26/20 15:48 Sodium Chloride IV 06/28/20 15:59 Infused Q24H GABY Infusion Azithromycin 500 mg/ Sodium 250 mls @ 250 mls/hr 06/25/20 10:00 06/26/20 15:49 Chloride IV Infused Q24H GABY Infusion Protocol Dexmedetomidine HCl 400 mcg/ 104 mls @ 0 mls/hr 06/25/20 12:30 06/26/20 19:56 Sodium Chloride IV 0 mcg/kg/hr .Q0M GABY 0 mls/hr Titration Protocol Per Protocol Fentanyl 1,000 mcg/ Sodium 100 mls @ 0 mls/hr 06/26/20 18:00 06/26/20 19:12 Chloride IV 75 mcg/hr .Q0M GABY 7.5 mls/hr Administration Protocol Per Protocol Propofol 1,000 mg in 100 mls @ 0 mls/hr 06/26/20 19:15 06/26/20 23:15 Diprivan IV 0 mcg/kg/min .Q0M GABY 0 mls/hr Titration Protocol Per Protocol PFSH Acute PFSH: Medical History BPH (benign prostatic hyperplasia) Cough HTN (hypertension) Lower respiratory infection Sinusitis Surgical History Hx of appendectomy Family History Other Hypertension Social History Smoking and tobacco status: never smoked Alcohol intake: current Alcohol intake frequency: holidays/special occasions only Substance/Drug Use: never Household members: spouse Marital status: Current occupational status: retired Vitals/I&O/Wt Last Vital Signs Temp 98.5 F 06/26/20 16:00 Pulse 88 06/26/20 23:00 Resp 15 06/26/20 23:00 BP 137/80 06/26/20 23:00 Pulse Ox 88 L 06/26/20 21:19 06/26/20 06/26/20 06/27/20 14:59 22:59 06:59 Intake Total 500.006 / 500.006 657.103 / 1157.109 22.183 / 1179.292 Output Total 250 / 250 1000 / 1250 Balance 250.006 / 250.006 -342.897 / -92.891 22.183 / -70.708 Weight last 48 hrs Weight 201 lb 1.6 oz Weight 209 lb 6.4 oz Physical Exam Narrative: EXAM NARRATIVE: PHYSICAL EXAM: General: lying in bed, sedated and intubated. HEENT:NCAT, PERRLA, EOMI Neck: Supple Lungs: Clear, Heart: s1/s2, RRR Abd: soft, NT, ND, BS + Normoactive Extremities: No edema STOCKROOM COORDINATOR: sedated and limited STOCKROOM COORDINATOR exam possible. SKIN: no rash LDA: # CVC: Right femoral line placed 06/26/2020 6 PM # Wynne: No urine output # A line: Right radial line placed in a 2019 6:30 PM # Chest tubes: 6 Andorran pigtail placed left side of the chest connected to suction 06/26/2020 9:30 PM Urinary Catheter Management^: Wynne: Cath Placed During This Visit: yes Reason for Continuing Indwelling Catheter: Accurate Measurement of Urinary Output in Critically Ill Patients Urinary Catheter Date of Insertion: 06/26/20 Urinary Catheter Time of Insertion: 09:42 Data Micro: Micro: Microbiology 06/26/20 18:15 Gram Stain - Preli minary Sputum - Endotrac heal Tube Aspirate 10/07/20 01:15 Gram Stain - Final Sputum - Expector ated Sputum Sputum Culture - P reliminary Other Data: Other data: 06/24/2020 chest x-ray on admission: There is widening in the mediastinum associated with ectasia of the thoracic aorta. There is some deformity of the upper trachea. There is elevation of both hemidiaphragms. Poor inspiration. There is a reticular nodular pattern in both lungs most notably the right upper lung and the left lingular segment. These findings are more likely chronic in nature. There is no previous exam for comparison. 06/25/2020 CT chest: 1. Diffuse groundglass alveolar infiltrates worse in the right lung involving the right upper lobe, right middle lobe and right lower lobe. A few air bronchograms within the right lower lobe with a small right pleural effusion. No dense consolidation. 2. Additional hazy ground glass infiltrates in the left upper lobe and left lower lobe. Chronic elevation left hemidiaphragm. 3. A few reactive peribronchial and hilar lymph nodes. 06/25/2020 echocardiogram: Normal left ventricular size and systolic function, EF 59 %. Mild left ventricular hypertrophy. No regional wall motion abnormalities. Thickened mitral valve. Thickened aortic valve. There is no pericardial effusion. There are no intracardiac masses. No previous study is available for comparison. Chest x-ray 06/26/2020: 6:30 AM Density in the periphery of the left lung is unchanged. Diffuse hazy reticular density in the right lung is unchanged. No new findings. Chest X ray 06/26/2020 6:30 PM post intubation Tubes, catheters and devices: A new endotracheal tube ends 1 cm below the mid clavicles. Lungs: Persisting hazy infiltrates in the right upper lobe. Pleural space: Since 6:30 a.m. today there is a new large left pneumothorax measuring up to 5 cm in depth and occupying at least 50% of the left hemithorax volume. Heart/Mediastinum: There is new cardiomediastinal shift towards the right indicating a component of tension. Bones/joints: Unremarkable. Chest x-ray 06/26/2020 10:55 PM post pigtail placement for pneumothorax Tubes, catheters and devices: The endotracheal tube is appropriately positioned in the distal thoracic trachea with the tip above the tianna. Lungs: There is extensive opacity throughout the right lung which is stable. Pleural space: Left pneumothorax is markedly decreased in size since the prior chest radiograph approximately 4 hours ago. There is a persistent left pneumothorax of approximately 30%. There is a small bore left chest tube visible in the lateral lower left hemithorax. Heart/Mediastinum: Rightward mediastinal shift visible on the prior chest radiograph is decreased. Cardiomediastinal contours are partially obscured due to rotation and mediastinal shift. There is no gross cardiac enlargement. A&P Assessment and plan (1) Acute hypoxemic respiratory failure due to COVID-19: Status: Acute (2) Tension pneumothorax, spontaneous: Status: Acute (3) BPH (benign prostatic hyperplasia): Status: Chronic Qualifiers: Lower urinary tract symptom presence: unspecified whether lower urinary tract symptoms present Qualified Code(s): N40.0 - Benign prostatic hyperplasia without lower urinary tract symptoms (4) HTN (hypertension): Status: Chronic Qualifiers: Hypertension type: essential hypertension Qualified Code(s): I10 - Essential (primary) hypertension 69-year-old Mr. Rafa Lucas with past medical history of hypertension and BPH admitted to COVID ICU for acute hypoxemic respiratory failure secondary to COVID. Initially increasing requirements of oxygen at 100% on 70 L heated high flow, desaturated requiring emergency endotracheal intubation. Postintubation chest x-ray revealed large left-sided pneumothorax with mediastinal shift. NEURO: Sedation -Continue Versed, fentanyl-titrate down to keep RASS: -2 Paralytic -Can DC Nimbex once patient saturating >90 % and FiO2 requirements are coming down PULM: Acute hypoxic respiratory failure -Intubated and on pressure control, PIP 30, PEEP 14 and FiO2 100% still saturating 85% -Give inhalational milrinone 1 mg X 3 doses -Meanwhile arrangements were made to transfer to [facility] -Post intubation chest x-ray showed large left pneumothorax with right mediastinal shift -6 Andorran pigtail placed emergently and post pigtail chest x-ray showed significant improvement in pneumothorax but still 30% is present and chest tube is in place -Saturations improved significantly and PEEP down to 5 and we are titrating down FiO2 to keep saturations greater than 92% -will repeat ABG now CVS: Hypertension -Home meds nebiviloll 10 mg and losartan -Hemodynamically stable -Echo ejection fraction 59% and normal left ventricular systolic function -BNP -769> 186 -DC Lasix -On aspirin GI: N.p.o. for now Place NG tube tomorrow and start feeding RENAL: Normal electrolytes and normal renal functions Monitor input output and try to keep even DC Lasix HEM: H&H stable Plts stable,will trend Coags stable On Eliquis for anticoagulation ENDO: Monitor sugars as patient is on steroids And place on subcutaneous insulin ID: Severe sepsis secondary to COVID pna -afebrile,Tmax 99.2,Mild leucocytosis 12.4 -D-dimer, C-reactive protein, LDH, fibrinogen elevated -trend inflammatory markers every 2 days -Currently on dexamethasone 70 daily started 06/24/2020 -On remdesivir today day 3 -Azithromycin day 3 -Cultures negative so far ICU CHECKLIST: Problem list updated Verbal orders reviewed and signed Analgesia: Fentanyl Glycemic Control: Not needed now Nutrition: N.p.o. for now Restraint Renewal (within 24 hrs): Ordered Ulcer Prophylaxis: H2 sd Chemical Thromboprophylaxis: Prophylaxis: Heparin Mechanical Thromboprophylaxis: Yes Need for Central line: For multiple medications and possible need of pressors Need for Wynne catheter: Urine output monitoring Critical Care Time (No Overlap):120 min This patient has a high probability of sudden, clinically significant deterioration, which requires the highest level of physician preparedness to intervene urgently. I managed/supervised life or organ supporting interventions that required frequent physician assessment. I devoted my full attention in the ICU to the direct care of this patient for the period of time indicated above. Time I spent with family or surrogate(s) is included only if the patient was incapable of providing necessary information or participating in decision making. Time devoted to teaching and to any procedures I billed separately is not included. Services Provided: Telemetry review Mechanical Ventilation Hemodynamic interpretation, assessment and management Review and interpretation of CXR Review and interpretation of lab values Review and interpretation of microbiologic data and culture results Review of medications and administration Review and interpretation of Nutrition requirements and management Discussion of management with other consultants and services Clinical update to family members Consult Attestations Medical Necessity Statement: Acute hypoxic respiratory failure requiring mechanical intubation due to COVID-19 pneumonia and a large left pneumothorax causing mediastinal shift to the right Critical Care Time: Critical Care Time (min): 120 Coding Level of Care Code New Pt Acute Tile Conduit Layer for g Fwd Patient Type New History Comprehensive Exam Comprehensive Medical Decision Making High Complexity Diagnoses Acute hypoxemic respiratory failure due to COVID-19 U07.1; J96.01 Tension pneumothorax, spontaneous J93.0 BPH (benign prostatic hyperplasia) N40.0 Lower urinary tract symptom presence: unspecified whether lower urinary tract symptoms present HTN (hypertension) I10 Hypertension type: essential hypertension Time Spent (min) 120
[2020-06-26] MEDS: cisatracurium 100 MG in sodium chloride 0.9% 50 ML 27.4 MG IV (23:27)
--- NOTE | 2020-06-26 23:37 | PC.NURSE ---
Received report from GIOVANNA Clark in SBAR format, doctors and AIR QUALITY INSTRUMENT SPECIALIST at bedside. Pt intubated, mechanically ventiulated, pt on Proprofol for sedation. Pt changed to Nimbex and Versed with Fentanyal drips. Pt also had chest tube placed on left midaxillary.
[2020-06-27] VITALS (36 sets, daily range): BP systolic 100–202; BP diastolic 58–111; PULSE 80–117; RESP 14–18; TEMP 36.8–37.2; O2SAT 86–100
[2020-06-27 00:05] LABS: ABG PH Result 7.22 (7.35-7.45); Alveolar-Arterial Oxygen Gradi 72.8 mmHg (5-10); Arterial Blood Gas Hematocrit 46.4 % (42-52); Base Excess ABG -3.5 mmol/L (-2.0-2.0); Blood Gas Sample Site ARTLINE; Blood Gas Sample Type Arterial; Carboxyhemoglobin 0.6 %THgb (0.4-20.1); HCO3 ABG 25.7 mmol/L (22-26); HGB O2 Sat 91.5 % (95-100); Ionized Calcium Level - ABG 1.1 mmol/L (1.1-1.4); Methemoglobin 0.8 % (0.4-1.5); Oxygen Device VENT; Oxygen Saturation ABG 92.7; Potassium Level - ABG 4.9 mmol/L (3.5-5.0); Total Hemoglobin 15.2 g/dL (14-18)
--- NOTE | 2020-06-27 00:05 | P.OP_ITS ---
Operative Report Date of procedure: June 26, 2020 0930 PM PULMONARY AND CRITICAL CARE MEDICINE CHEST TUBE PLACEMENT Procedure: Pigtail Catheter Indication: Large left tension pneumothorax causing right mediastinal shift Litigation Docket Manager(s): Rodríguez May MD Consent: Emergent Anesthesia: Patient sedated and paralyzed as he was intubated Description: Left pneumothorax was localized using ultrasound guidance and site marked accordingly. After chlorhexidine skin prep, area was draped in a sterile manner. 1% lidocaine was used for local anesthesia. 6 Bruneian pigtail catheter guide needle was then inserted into the pleural space and noticed air bubbles in the aspirating syringe. catheter was slipped into the pleural cavity while r etrieving the guide needle and catheter connected to suction. Air bubbles noted in the chamber EBL: 5 cc Complications: None 20 minutes postprocedure chest x-ray showed markedly decreased size of left pneumothorax measuring approximately 30% decreased rightward mediastinal shift and a small bore chest tube positioned along the left lateral lung base. Associated Problem List Diagnoses (1) Tension pneumothorax, spontaneous:
[2020-06-27 00:09] LABS: ABG PCO2 62.8 mmHg (35-45)
--- NOTE | 2020-06-27 00:17 | PC.RESP ---
Addendum entered by Cristhian Cantu, RT 06/27/20 00:36: Dr. Hill was called with abg reported to him. Dr. Hill said no changes at this time, abg in two hours. After I hung up the phone Dr. May called me with orders. Original Note: Spoke to Dr. May about pt's ABG. Dr. May has order to increase the tidal volume to 500 ml and repeat a blood gas in two hours. also wants the ET tube pushed down 1 cm as it looks like it may be a tad high according to radiology and Dr. May. I have turned up the tidal volume to 500 ml. ET tube is now 26 cm at the lip. I will do an ABG in two hours.
--- NOTE | 2020-06-27 00:26 | PC.NURSE ---
Rachel Morrow moved ETT to 26 at this teeth per Datar
--- NOTE | 2020-06-27 01:44 | PC.RESP ---
Summary of events: 2039: Chest tube in place. Per Dr. May PEEP reduced from 12 cm to 8 cm h20, changed ventilator settings to VC-AC tidal volume 600 ml, 100% Fio2, PEEP 8, and RR 14. Current O2 sat is 96% on 100 FiO2. 2044: Per Dr. May decreased PEEP to 5, decreased tidal volume to 450 ml, O2 sat currently 92% on 100 FiO2.
[2020-06-27 02:42] LABS: ABG PH Result 7.24 (7.35-7.45); Arterial Blood Gas Hematocrit 47.3 % (42-52); Base Excess ABG -2.1 mmol/L (-2.0-2.0); Blood Gas Allen Test Pos; Blood Gas Sample Site Radial, right; Blood Gas Sample Type Arterial; HCO3 ABG 26.9 mmol/L (22-26); Oxygen Device VENT; PO2 ABG 76.4 mmHg (80.0-100.0)
[2020-06-27 02:43] LABS: ABG PCO2 62.8 mmHg (35-45)
--- NOTE | 2020-06-27 03:03 | XRR_ITS ---
PROCEDURE INFORMATION: Exam: XR Chest, 1 View Exam date and time: 06/27/2020 4:00 AM Age: 69 years old Clinical indication: Device placement; Patient HX: Follow up, et, chest tube; Additional info: Pneumo thorax TECHNIQUE: Imaging protocol: XR of the chest Views: 1 view. COMPARISON: CR XR chest 1V portable [id number] 06/26/2020 10:47 PM FINDINGS: Tubes, catheters and devices: The endotracheal tube is appropriately positioned in the distal thoracic trachea with the tip above the tianna. Stable small bore left chest tube overlying the lateral inferior left lung. Lungs: Stable consolidation in the right lung. Stable volume loss in the right lung. Pleural space: Stable 30% left pneumothorax. Heart/Mediastinum: Cardiomediastinal contours are stable. Bones/joints: Bones are unremarkable. XR/XR chest 1V portable [id number] IMPRESSION: 1. No change compared to the prior chest radiograph. Stable left pneumothorax and chest tube. 2. Stable consolidation throughout the right lung. 3. Satisfactory endotracheal tube position.
--- NOTE | 2020-06-27 03:29 | PC.RESP ---
Increased RR to [address] Datar. Araya in two hours
[2020-06-27] MEDS: ipratropium-albuterol 3 mL Neb INHALATION ×2 (03:46→08:02)
[2020-06-27 03:48] LABS: Basophils % 0.2 %; Hematocrit 47.6 % (42.0-52.0); Hemoglobin 15.1 g/dL (11.7-16.6); Lymphocytes # 0.4 10^3/uL (0.8-4.8); Lymphocytes % 2.6 %; Mean Corpuscular HGB Conc 31.7 g/dL (30.0-36.0); Mean Corpuscular Hemoglobin 26.4 pg (28.0-34.0); Mean Corpuscular Volume 83.2 fL (80-94); Mean Platelet Volume 11.4 fL (7.4-10.4); Monocytes # 1.6 10^3/uL (0.2-0.9); Monocytes % 9.5 %; Neutrophils # 14.95 10^3/uL (1.8-7.7); Neutrophils % 86.9 %; Nucleated Red Blood Cells % 0 %; Platelet Count 330 10^3/cmm (130-400); Red Blood Count 5.72 10^6/uL (4.1-5.3); Red Cell Distribution Width 18.9 % (12.1-15.1); White Blood Count 17.2 10^3/uL (4.0-10.0)
[2020-06-27 04:02] LABS: Fibrinogen 703 mg/dL (174-498)
--- NOTE | 2020-06-27 04:04 | PC.NURSE ---
pt resting comfortably, will continue to monitor changes in condition
[2020-06-27 04:05] LABS: D Dimer 3.74 ug/mIFEU (0-0.59)
[2020-06-27] MEDS: cisatracurium 100 MG in sodium chloride 0.9% 50 ML 16.4 MG IV ×2 (04:09→04:11)
--- NOTE | 2020-06-27 04:12 | PC.NURSE ---
first dose of Nimbex was administered when patient was in critical condition and unable to be scanned before. It was started at approximately 2030 on 06/26/2020.
[2020-06-27 05:05] LABS: ABG PCO2 55.1 mmHg (35-45); ABG PH Result 7.28 (7.35-7.45); Arterial Blood Gas Hematocrit 46.1 % (42-52); Base Excess ABG -2.2 mmol/L (-2.0-2.0); Blood Gas Sample Site ARTLINE; Blood Gas Sample Type Arterial; HCO3 ABG 25.7 mmol/L (22-26); Oxygen Device VENT; PO2 ABG 71.7 mmHg (80.0-100.0)
--- NOTE | 2020-06-27 05:11 | PC.NURSE ---
pt resting comfortably, eyes covered, linens and gown changed, VSS, Versed running at 5mg/hr, Fentanyal at 150mcg/hr, and Nimbex titrated down to 2mcg/kg/hr, will continue to titrate Nimbex down to remove patient per Dr Datars verbal order. chest tube still in place, bubbling in chamber, Dr Datar states to continue to let bubble as there was a pneumo and chest cavity was full of air. Also there is not a tight seal to chest cavity as tube was not place as large bore chest tube.
[2020-06-27 06:10] LABS: NT Pro B Type Natriuretic Pept 233 pg/mL (0-125); Procalcitonin 0.07 ng/mL (0-0.5)
[2020-06-27 06:23] LABS: Alanine Aminotransferase 20 U/L (0-41); Albumin Level 2.9 g/dL (3.5-5.2); Alkaline Phosphatase 66 IU/L (40-130); Anion Gap 14.3 (5-19); Aspartate Amino Transferase 19 U/L (0-40); Blood Urea Nitrogen 30 mg/dL (8-23); Carbon Dioxide 25 mmol/L (22-29); Chloride 103 mmol/L (98-107); Creatine Phosphokinase 36 U/L (39-308); Ferritin 309 ng/mL (30-400); Globulin 4.1 g/dL (1.3-4.6); Glomerular Filtration Rate 66.4 mL/min (90-130); Glucose 102 mg/dL (65-115); Lactate Dehydrogenase 292 U/L (135-225); Osmolality Calculated 290 mOsm/kg (285-295); Potassium 5.3 mmol/L (3.5-5.1); Sodium 137 mmol/L (136-145); Total Bilirubin 0.4 mg/dL (0.15-1.2)
--- NOTE | 2020-06-27 07:49 | PC.NURSE ---
fentanyl is at 100, versed at 5, numbex at 1 at start of shift.
--- NOTE | 2020-06-27 07:56 | PC.NURSE ---
unsure if fentanyl bag was scanned but was hangingon pole, I went ahead and scanned it myself since i was spiking/starting it
[2020-06-27] MEDS: budesonide 0.5 mg/2 mL Neb INHALATION (08:02)
--- NOTE | 2020-06-27 08:02 | PM.PN ---
Subjective Subjective: Interval history: Remains on ventilator support, FiO2 of 100%, on sedation and paralytics. ABG with noted hypoxia, PO2 of 71.7, noted inflammatory markers and labs. On day 4 of Remdesevir. Had 1425 mL urine output overnight for total negative fluid balance of 1.9 L. Some improvement in pneumothorax following chest tube placement yesterday, plan for larger chest tube placement by Dr. Madrid today. Medications: Reviewed: Yes Medication Review Details: Active Medications Generic Name Dose Route Start Last Admin Trade Name Freq PRN Reason Stop Dose Admin Acetaminophen 650 mg 06/24/20 20:56 Tylenol PO Q6H PRN Mild/Mod Pain Or Temp >/= 101 Acetaminophen 650 mg 06/26/20 22:59 Tylenol NV Q6H PRN increased temp or mild pain Acetylcysteine 100 mg 06/26/20 08:15 06/26/20 19:52 Mucomyst INHALATION 100 mg Q4H.RESPIRATORY S CH Administration Albuterol Sulfate 2 puff 06/25/20 04:52 Ventolin INHALATION Q4H.RESPIRATORY P RN SHORTNESS OF HU TH Albuterol/Ipratrop ium 3 ml 06/25/20 09:23 06/25/20 20:55 Duoneb INHALATION 3 ml Q6H PRN Administration SHORTNESS OF HU TH Albuterol/Ipratrop ium 3 ml 06/26/20 08:15 06/27/20 03:46 Duoneb INHALATION 3 ml Q4H.RESPIRATORY S CH Administration Aspirin 81 mg 06/25/20 09:00 06/26/20 08:05 Aspirin Ec PO 81 mg DAILY GABY Administration Benzonatate 100 mg 06/24/20 20:56 Tessalon Pearls PO TID PRN COUGH Budesonide 0.5 mg 06/25/20 09:30 06/26/20 19:53 Pulmicort INHALATION 0.5 mg BID.RESPIRATORY S CH Administration Dexamethasone 6 mg 06/25/20 09:00 06/26/20 08:07 Decadron IVP 6 mg Q24H GABY Administration Famotidine 20 mg 06/24/20 20:56 06/26/20 23:34 Pepcid Inj IVP Not Given Q12H GABY Heparin Sodium (Be ef Lung) 5,000 unit 06/26/20 23:15 06/27/20 00:17 Heparin SUBCUT Not Given Q12H GABY Hydralazine HCl 10 mg 06/24/20 20:56 06/24/20 22:39 Apresoline IVP 10 mg Q4H PRN Administration Elevated blood pr essure remdesivir (EUA) 1 00 mg/ 100 mls @ 100 mls /hr 06/25/20 15:00 06/26/20 15:48 Sodium Chloride IV 06/28/20 15:59 Infused Q24H GABY Infusion Azithromycin 500 m g/ Sodium 250 mls @ 250 mls /hr 06/25/20 10:00 06/26/20 15:49 Chloride IV Infused Q24H GABY Infusion Protocol Dexmedetomidine HC l 400 mcg/ 104 mls @ 0 mls/h r 06/25/20 12:30 06/26/20 19:56 Sodium Chloride IV 0 mcg/kg/hr .Q0M GABY 0 mls/hr Titration Protocol Per Protocol Vancomycin HCl 1,5 00 mg/ 250 mls @ 166.667 mls/hr 06/27/20 01:00 06/27/20 07:33 Sodium Chloride IV Infused Q12H GABY Infusion Protocol Norepinephrine Bit artrate 4 mg 254 mls @ 0 mls/h r 06/26/20 17:15 / Dextrose IV .Q0M GABY Protocol Per Protocol Sodium Chloride 1,000 mls @ 100 m ls/hr 06/26/20 17:30 06/27/20 04:45 Sodium Chloride 0.9% IV Not Given .Q10H GABY Fentanyl 1,000 mcg / Sodium 100 mls @ 0 mls/h r 06/26/20 18:00 06/27/20 07:52 Chloride IV 100 mcg/hr .Q0M GABY 10 mls/hr Administration Protocol Per Protocol Vasopressin 100 un it/ Sodium 100 mls @ 0 mls/h r 06/26/20 18:00 Chloride IV .Q0M GABY Protocol Per Protocol Propofol 1,000 mg in 100 m ls @ 0 mls/hr 06/26/20 18:30 Diprivan IV .Q0M GABY Protocol Per Protocol Propofol 1,000 mg in 100 m ls @ 0 mls/hr 06/26/20 19:15 06/26/20 23:15 Diprivan IV 0 mcg/kg/min .Q0M GABY 0 mls/hr Titration Protocol Per Protocol Midazolam HCl 100 mg/ Sodium 100 mls @ 0 mls/h r 06/26/20 20:00 Chloride IV .Q0M GABY Protocol Per Protocol Cisatracurium Besy late 100 mg/ 100 mls @ 0 mls/h r 06/26/20 20:15 06/27/20 04:11 Sodium Chloride IV 3 mcg/kg/min CONT GABY 16.4 mls/hr Administration Protocol Labetalol HCl 20 mg 06/27/20 01:32 Trandate IVP Q4H PRN FOR SBP>180, hold if hr<60 Ondansetron HCl 4 mg 06/24/20 20:56 Zofran IVP Q6H PRN vomiting, or N/V if npo Tamsulosin HCl 0.4 mg 06/27/20 21:00 Flomax OG-TUBE BEDTIME GABY No Known Allergies Allergy (Verified 06/24/20 13:37) Vitals/I&O/Wt Last Vital Signs Temp 98.2 F 06/27/20 05:51 Pulse 98 06/27/20 07:50 Resp 16 06/27/20 07:50 BP 108/68 06/27/20 06:14 Pulse Ox 88 L 06/27/20 07:50 06/26/20 06/27/20 06/27/20 22:59 06:59 14:59 Intake Total 672.103 / 1172.109 122.730 / 1294.839 345.75 / 345.75 Output Total 1425 / 1675 Balance -752.897 / -502.891 122.730 / -380.161 345.75 / 345.75 Weight last 48 hrs Weight 89.046 kg Weight 91.217 kg Physical Exam Narrative: EXAM NARRATIVE: Multiple drips running: Fentanyl @ 100 mcg/hr, Versed @ 5 mg/hr, Nimbex @ 1 mcg/kg/min Const: COMMON NORMALS: no acute distress GENERAL APPEARANCE: patient mechanically ventilated ORIENTATION/CONSCIOUSNESS: Yes awake OTHER: -sedated and paralyzed HENMT: COMMON NORMALS: normocephalic and atraumatic HEAD & SCALP: normocephalic and atraumatic Eye: COMMON NORMALS: Equal, round and reactive pupils present, EOMs intact bilaterally and conjunctivae normal CONJUNCTIVA: Yes conjunctivae normal PUPIL: Yes Equal, round and reactive pupils present Neck/C-Spine: COMMON NORMALS: full ROM GENERAL: Yes normal visual inspection and Yes trachea midline Resp: COMMON NORMALS: No retractions and No use of accessory muscles AUSCULTATION: rhonchi (R) and diminished lung sounds OTHER: -on vent support (pressure control), FiO2-100%, PEEP-8, tidal volume of 500. ETT-26 cm @ lip Cardio: COMMON NORMALS: regular rate, regular rhythm, S1 normal heart sound present, S2 normal heart sound present and No murmurs present (Cardio) RATE: regular rate and tachycardic (intermittently) RHYTHM: regular rhythm HEART SOUNDS: S1 normal heart sound present and S2 normal heart sound present GI: COMMON NORMALS: Normal to inspection, nondistended, normoactive bowel sounds present, Soft to palpation and non-tender PALPATION: Yes Soft to palpation : BLADDER/KIDNEY EXAM: Yes catheter in place OTHER: -R femoral central line Extremity: COMMON NORMALS: normal to inspection and no pedal edema NARRATIVE EXTREMITY EXAM: -intermittently cyanotic feet GENERAL: Yes vascular access ( R arterial line) Neuro: COMMON NORMALS: moves all extremities, no focal motor deficits and no sensory deficits noted OTHER: -sedated and paralyzed Psych: COMMON NORMALS: mental status grossly normal, Normal thought process present, cooperative, normal affect and speech normal SPEECH: Yes normal speech THOUGHT PROCESS: Normal thought process present OTHER: -sedated and paralyzed Skin: COMMON NORMALS: no rashes or lesions noted, no jaundice, no petechiae and no mottling GENERAL SKIN EXAM: no rashes or lesions noted Urinary Catheter Management^: [place]: Cath Placed During This Visit: yes Reason for Continuing Indwelling Catheter: Accurate Measurement of Urinary Output in Critically Ill Patients Urinary Catheter Date of Insertion: 06/26/20 Urinary Catheter Time of Insertion: 09:42 Data : 06/27/20 03:30 06/27/20 04:35 Micro: Microbiology 06/26/20 18:15 Gram Stain - Final Sputum - Endotracheal Tube Aspirate 06/25/20 01:15 Gram Stain - Final Sputum - Expectorated Sputum Sputum Culture - Preliminary A&P Assessment and plan (1) COVID-19 virus infection: -Tested positive for COVID-19 on 06/16, continues to be symptomatic with noted hypoxia and currently requiring supplemental oxygen support. Increased oxygen requirement overnight, now on heated high flow with FiO2 of 100%, 70 L. Subsequent decompensation and need for mechanical ventilation, remains on FiO2-100% -Isolation precautions -continue to monitor respiratory status closely -Supportive care including zinc, vitamin C, antitussives, breathing treatments as needed, pulmonary toilet, incentive spirometry, flutter valve -continue dexamethasone -on day 4/5 of remdesevir -Noted elevated d-dimer, ferritin, lactic acid, fibrinogen, CRP, continue to trend inflammatory markers. Normal pro-calcitonin -Chest x-ray reported as reticular changes, monitor progression with repeat imaging. CT chest findings noted, discussed with Dr. May -Afebrile, noted hemodynamic instability following intubation, alternating between hypo- and hypertension, continue to monitor vital signs. Did require some pressor support particularly with sedation -Telemetry monitoring -Influenza screen negative, MRSA negative, bacterial antigens, Legionella -blood cx prelim negative -sputum cx moderate mixed respiratory zofia, gram stain polymicrobial -has been treated with course of Azithromycin and Levaquin. Resumed Azithromycin, continue Vancomycin due to noted GPC in sputum gram stain -due to increased risk of thrombosis, on Eliquis -continue to monitor fluid balance closely, on IV Lasix, Echo: EF=59%, no RWMA, no baseline on record -on sedation, paralytics; wean as tolerated Status: Acute (2) Acute respiratory distress syndrome (ARDS) due to COVID-19 virus: -increased oxygen requirement, now on mechanical vent support -close monitoring of respiratory status -continued monitoring of vital signs -continue IV steroids, pulmonary toilet -continue IV diuresis, maintain negative fluid balance if possible Status: Acute (3) Tension pneumothorax, spontaneous: -noted on imaging, correlates with difficulty oxygenating even after intubation. Noted improvement in saturation after chest tube placement by Dr. May yesterday -daily CXR -Dr. Madrid to place larger chest tube today Status: Acute (4) Acute hypoxemic respiratory failure due to COVID-19: -now on vent support as noted above -Secondary to COVID-19 infection as noted above -Not oxygen dependent at baseline Status: Acute (5) HTN (hypertension): -Continue to monitor vital signs; intermittent bradycardia -on nebivolol, d/c ARB. Status: Chronic Qualifiers: Hypertension type: essential hypertension Qualified Code(s): I10 - Essential (primary) hypertension (6) BPH (benign prostatic hyperplasia): -on tamsulosin Status: Chronic Qualifiers: Lower urinary tract symptom presence: unspecified whether lower urinary tract symptoms present Qualified Code(s): N40.0 - Benign prostatic hyperplasia without lower urinary tract symptoms Additional A&P Information -low salt diet as tolerated; keep NPO for now due to potential for intubation -hyponatremia, resolved; continue to monitor Na levels, supplementation if needed -GI ppx with famotidine -DVT ppx with heparin -Dispo: home -Code status: FULL code -higher oxygen requirement, increased work of breathing, intubated yesterday PM due to continued decompensation. -pending transfer to [facility] in [place], [place] today via air. Confirmed by Dr. Stringer this AM. Bed availability confirmed. Attestations Medical Necessity Statement*: Patient requires hospitalization for continued management of severe COVID-19 infection with ARDS, now on mechanical vent support, as well as management of large L pneumothorax s/p chest tube placement. Time Spent in Patient Care: Greater than 35 minutes (>than 50% of time spent in counselling and/or direct pt care on unit). Critical Care Time: The high probability of a clinically significant, sudden or life threatening deterioration of the patient's [cardiovascular, respiratory] system(s) required my full and direct attention, intervention and personal management. The critical care time is as shown. 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
[2020-06-27] MEDS: lidocaine 1% INJ 20 mL 5 ML IV (08:31)
--- NOTE | 2020-06-27 09:00 | XR_ITS ---
WS: [id number] Portable AP upright chest, 06/27/2020, 0929 hours. Clinical Data: chest tube Comparison: Portable chest, 06/27/2020, 0407 hours. Findings: The apical left pneumothorax has not changed. A left chest tube has been inserted and the t ip ends overlying the medial left chest. Endotracheal tube is above the tianna. The patchy opacities in both lungs remain the same. The heart size is normal. Monitor leads are on the chest wall. XR/XR chest 1V portable [id number] Impression: 1. Insertion of left chest tube with no change in left apical pneumothorax. 2. No change in endotracheal tube. 3. No change in bilateral pulmonary consolidations.
--- NOTE | 2020-06-27 09:37 | PC.NURSE ---
Patient currently gcs 3 given on sedation and paralytic. MD Brunson aware. Vitals stable upon assessment. Train of four done every 30min and only had 1-2 twitches out of 4 each time. Currently on Nimbex at 1, Versed at 5, and Fentanyl at 100. Will continue to monitor closely. Dr May, Dr Chan, Dr. Navarrete, and Kayleen Lucas (reports analysis manager) at bedside. MD May ordered large bore (28) left chest tube. Consent was signed by family member Kayleen. Chest tube was placed. During procedure Dr Brunson ordered for the fentanyl to be increased to 200mcg and versed at 6. (Patient blood pressure was rising and becoming tachycardic) Then returned to original dosing pre-procedure. Dr. May notified me that patient will be transporting via air evac. Transfer orders were placed and report was called to [facility] to Camryn Handy, GIOVANNA accepting physician Dr. Baldwin. Number [phone]. Awaiting air evac.
--- NOTE | 2020-06-27 09:45 | P.OP_ITS ---
Operative Report Date of procedure: June 27, 2020 Pre-op Diagnosis: Progressive respiratory failure requiring mechanical ventilation with subsequent left pneumothorax Post-op diagnosis: same Procedure Done: 28 Malawian left thoracostomy tube placement Implants: 28 Malawian chest tube Pathology: none sent Surgeon: Qasim Madrid Anesthesia: Local (1% lidocaine) and Other (IV sedation fentanyl/propofol) Complications: None Disposition: ICU Brief History: 69-year-old gentleman who has developed progressive respiratory failure with documented COVID-19 infection. Sepsis required intubation mechanical ventilation developed a left pneumothorax. Small pigtail catheter was placed on the left chest though there is still concerns of incomplete evacuation of the left pneumothorax. Formal chest tube was requested. I discussed this very carefully with Mr. Lucas's granddaughter who has provided verbal consent at bedside. Procedure: Procedure: Mr. Lucas was placed in the supine position with the left chest slightly elevated. IV conscious sedation using anxiolytics and propofol was given with continous monitoring of heart rate, rhythm, ekg, and O2 saturation. He remains orally intubated. The entire left anterior and lateral chest was thoroughly prepped and draped. 1% lidocaine was infiltrated in the midaxillary line over the seventh rib. A #10 scalpel blade was used to incise the skin, 3-0 nylon stay suture was placed, followed by utilizing a small hemostat to enter the pleural space with return of small amount of pleural fluid. A 28 Malawian drain was placed. Chest tube was secured to the skin followed by placement of sterile dressings. Chest tube is placed to Pleur-evac suction. Mr. Lucas tolerated the procedure well and chest x-ray reveals a 28 Malawian chest tube to be in the fissure but appears to be having adequate drainage and will protect from a tension pneumothorax during planned transport for tertiary care. We will leave chest tube to suction during scheduled transport. I did addictions counselor assistant with his granddaughter at the completion of the procedure and conferred with Dr. May.
[2020-06-27 10:22] LABS: ABG PCO2 51.6 mmHg (35-45); Arterial Blood Gas Hematocrit 44.8 % (42-52); Base Excess ABG -2.2 mmol/L (-2.0-2.0); Blood Gas Allen Test Pos; Blood Gas Sample Type Arterial; Carboxyhemoglobin 0.6 %THgb (0.4-20.1); HCO3 ABG 25.1 mmol/L (22-26); HGB O2 Sat 91.3 % (95-100); Ionized Calcium Level - ABG 1.1 mmol/L (1.1-1.4); Methemoglobin 0.8 % (0.4-1.5); Oxygen Saturation ABG 92.6; PO2 ABG 70.3 mmHg (80.0-100.0); Potassium Level - ABG 4.8 mmol/L (3.5-5.0); Total Hemoglobin 14.6 g/dL (14-18)
[2020-06-27 10:23] LABS: Alveolar-Arterial Oxygen Gradi 75.6 mmHg (5-10); Blood Gas Operator Identificat ED; Blood Gas Sample Site Radial, right; Oxygen Device VENT
--- NOTE | 2020-06-27 11:37 | PC.NURSE ---
Wasted left over medicines. 600mg of propofol 200mcg of precedex 850mcg of Fentanyl 50mg of Versed Wasted with GIOVANNA Griffin, ICU
== END 2020-06-27 11:05 | disposition home or self-care (01) | DRG 208 ==
LOC: ER 12:18 → ICU 17:02
PROVIDERS: Emergency Medicine; Family Medicine; Internal Medicine Pulmonary Disease; Admitting Provider Family Medicine; PCP Nurse Practitioner Family; Visit Provider Family Medicine
DX: U07.1 COVID-19 (principal); J96.01 Acute respiratory failure with hypoxia; J93.0 Spontaneous tension pneumothorax; E87.1 Hypo-osmolality and hyponatremia; I10 Essential (primary) hypertension; N40.0 Benign prostatic hyperplasia without lower urinary tract symptoms; F41.9 Anxiety disorder, unspecified
CPT/HCPCS: 12345; 36415; 36600; 51702; 71045; 71250; 80051; 80053; 80202; 82550; 82728; 82803; 82810; 83605; 83615; 83735; 83880; 83986; 84145; 84484; 85025; 85378; 85384; 85610; 86140; 87040; 87070; 87205; 87641; 87804; 93005; 93306; 94002; 94003; 94640; 94664; 94799; 96372; 99284; J0330; J0360; J0456; J1100; J1650; J1940; J2260; J2370; J2704; J3010; J3370; J3490; J7050; J7608; J7626